=== PATIENT | female | born 2000 | race Caucasian/White ===

== ENCOUNTER 2019-10-19 02:45 | Emergency (ER) | payer BC ==
[~2019-10-19] VITALS: Ht 162.6 cm; Wt 77.1 kg
--- OUTSIDE RECORDS SUMMARY | ~2019-10-19 | XMS | Encounter Summary ---
Demographics + + + | Address | [address] | | | [place] [address] | + + + | Home Phone | | + + + | Preferred Language | Unknown | + + + | Marital Status | Single | + + + | Alevism Affiliation | NRP | + + + | Race | White | + + + | Ethnic Group | Not or | + + + Author + + + | Author | [facility] | + + + | Organization | [facility] | + + + | Address | Unknown | + + + | Phone | Unavailable | + + + Support + + +---------+ + | Name | Relationship | Address | Phone | + + +---------+ + | Regina Liu | ECON | Unknown | | + + +---------+ + Care Team Providers + +------+ + | Care Connection Worker Name | Role | Phone | + +------+ + | No Pcp Per Patient | PCP | Unavailable | + +------+ + Reason for Referral Physical Therapy (Routine) +--------+--------+ + + + + | Status | Reason | Specialty | Diagnoses / | Referred By | Referred To | | | | | Procedures | Contact | Contact | +--------+--------+ + + + + | Closed | | Physical | Diagnoses | Shante | | | | | Therapy | Erik Nunez | | | | | | khanh dhaliwal, | [facility] [address] | | | | | | right, | [address] | | | | | | subsequent | [address] | | | | | | encounter | [place], [place] | | | | | | Procedures | [address] | | | | | | PHYSICAL | Phone: | | | | | | THERAPY | [phone] | | | | | | REFERRAL | Fax: | | | | | | | [phone] | | +--------+--------+ + + + + Reason for Visit + + + | Reason | Comments | + + + | Pre-op evaluation | | + + + Encounter Details +--------+---------+ + + + | Date | Type | Department | Care Team | Description | +--------+---------+ + + + | 02/21/ | Office | Orthopaedics | Mayra Frey | Acetabular labrum | | 2018 | Visit | [facility] [place] | [address] | tear, right, | | | | for Health and | [address] [place], | subsequent encounter | | | | Healing [address] | [place] [address] | (Primary Dx) | | | | Ave [place] for | [phone] | | | | | Health and Healing, | | | | | | | | | | | | Floor [place], [place] | | | | | | [address] | | | | | | [phone] | | | +--------+---------+ + + + Social History + +-------+ +--------+------+ | Tobacco Use | Types | Packs/Day | Years | Date | | | | | Used | | + +-------+ +--------+------+ | Never Smoker | | | | | + +-------+ +--------+------+ + +---+---+---+ | Smokeless Tobacco: | | | | | Never Used | | | | + +---+---+---+ + + +---------+ + | Alcohol Use | Drinks/Week | oz/Week | Comments | + + +---------+ + | No | | | | + + +---------+ + + + + | Sex Assigned at | Date Recorded | | | | + + + | Not on file | | + + + + + + + | Job Start Date | Occupation | Industry | + + + + | Not on file | Not on file | Not on file | + + + + + + + + | Travel History | Travel Start | Travel End | + + + + + + | No recent travel history available. | + + documented as of this encounter Progress Notes Mayra Frey PA-C - 02/21/2018 11:05 AM PSTFormatting of this note might be di fferent from the original. S:Annabelle Gardner is a 17 y.o. female here for preop for right hip arthroscopic l abral surgery, cartilage surgery and femoral neck osteoplasty surgery. She reports no recen t illness/fever. She reports these conditions, allergies and medications significant to surg jazmín: Diabetes:no Cardiovascular: no Pulmonary: no Bleeding or clotting disorders: no Current Medication List Name Sig DASETTA (28) 1 MG-35 MCG TABLET Allergies No Known Allergies O: General: NAD, alert, affect appropriate, cooperative with exam Musculoskeletal: No change from previous. Surgical site is unbroken, without erythema or other sign of infection. A:/P: A PARQ session was held. This procedure has been fully reviewed with the patient, and writt en informed consent has been obtained. Additional questions with discussion were completed. -PT orders provided -Post operative prescriptions provided; pt advised to fill prior to surgery. -D/C home care instructions provided. Patient expressed understanding of the following: - Risks associated with hip arthroscopy include: Anesthesia, damage to nerve/ vessel/ tendo n, blood clot, infection, osteonecrosis, hip fracture and traction related injury such as pe nile or vaginal numbness and foot drop - No food or drink from midnight the night before surgery until after surgery is completed. - Medications the day of surgery as recommended by Anesthesia. - Discontinue all aspirin, Ibuprofen, Motrin, or other anti-inflammatory - Tylenol, Extra Strength Tylenol or Tylenol Arthritis are okay to use for pain control. - Benefits of home pain pump. Do not shower until catheter from block is removed. - Benefits of oral pain medication in addition to home pain pump - Necessity of using crutches x 2 weeks postoperatively - Continuous passive motion machine x2 weeks 6 hours per day. Arrangements have been made t o have CPM machine delivered to patient's home. - Weightbearing, if permitted, only when leg is no longer numb. - Importance of attending preop and postop physical therapy. First PT appointment should occur within 72 hours of surgery. Please call to schedule this ahead of time so that there is no delay in beginning the rehabilitation process. - Potential for ongoing physical therapy - Need for a caregiver to transport them home from surgery documented in this encounter Plan of Treatment Not on filedocumented as of this encounter Procedures + +--------+ + + + | Procedure Name | Priori | Date/Time | Associated Diagnosis | Comments | | | ty | | | | + +--------+ + + + | ORDERS OTHER | | 02/21/2018 | | Results for this | | | | 12:00 AM | | procedure are in the | | | | PST | | results section. | + +--------+ + + + documented in this encounter Results ORDERS OTHER (02/21/2018 12:00 AM PST) + + + | Narrative | Performed At | + + + | | | + + + documented in this encounter Visit Diagnoses + + | Diagnosis | + + | Acetabular labrum tear, right, subsequent encounter - Primary | + + documented in this encounter"
--- OUTSIDE RECORDS SUMMARY | ~2019-10-19 | XMS | Encounter Summary ---
Demographics + + + | Address | [address] | | | [place] [address] | + + + | Home Phone | | + + + | Preferred Language | Unknown | + + + | Marital Status | Single | + + + | Tenriism Affiliation | NRP | + + + | Race | White | + + + | Ethnic Group | Not or | + + + Author + + + | Author | [facility] | + + + | Organization | [facility] | + + + | Address | Unknown | + + + | Phone | Unavailable | + + + Support + + +---------+ + | Name | Relationship | Address | Phone | + + +---------+ + | Regina Liu | ECON | Unknown | | + + +---------+ + Care Team Providers + +------+ + | Care Requirements Analyst Name | Role | Phone | + +------+ + | Ekaterina Head | PCP | | + +------+ + Reason for Visit + + + | Reason | Comments | + + + | Follow-up visit | | + + + Encounter Details +--------+---------+ + + + | Date | Type | Department | Care Team | Description | +--------+---------+ + + + | 06/21/ | Office | Orthopaedics | Romero Strong, | Pain of right hip | | 2019 | Visit | [facility] at [facility] | [address] [facility] | joint (Primary Dx) | | | | for Health and | [address] | | | | | Healing [address] | [place], [place] | | | | | [facility] for | [address] | | | | | Health and Healing, | [phone] | | | | | [facility] | | | | | | Floor [place], [place] | | | | | | [address] | | | | | | [phone] | | | +--------+---------+ + + + [...] documented as of this encounter Progress Notes Romero Strong MD - 06/21/2018 1:30 PM PDTFormatting of this note might be different fr om the original. Post Operative Visit: S: Annabelle Gardner is a 18 y.o. female almost 15 weeks status post the below mentione d procedure. Right Diagnostic Hip arthroscopy Acetabular chondroplasty Labral repair Capsular repair She is progressing well. She is doing home exercises, she is doing bridging, planks, squats ,joggingstep ups, balance work. She is mostly pain free and notes pain still with RIOS stre tch. She has occasional popping which is improving. ROS: Review of Systems: A 10 Point review of systems was conducted. Denies fevers, chills , SOB, chest pain, leg pain, purulent or bloody drainage from incision sights, erythema, flu ctuance, or induration, surrounding the incision sight, or changes in bowel or bladder funct ion. O: Vitals: 06/21/18 1333 PainSc: 0 - Zero PainLoc: Hip (Right) Physical Exam: GA: Alert and oriented x 3, NAD, appropriate mood and affect. Gait: nl FORWARD FLEXION: 120 ER at 90 degrees: 50 IR at 90 degrees: 20 RIOS 2 Incisions healing well without surrounding erythema, warmth, or discharge. SENSATION: Intact to light touch Xray: nl postop ASSESSMENT: Annabelle is progressing well. PLAN: -f/u at 6 months postop -continue rehab per protocol. Romero Strong MD Sports Orthopaedics and Arthroscopy Splicer Operator Dept. Orthopaedic Surgery and Rehabilitation [facility] documented in this e ncounter Plan of Treatment Not on filedocumented as of this encounter Results X-RAY PELVIS 2 VIEWS (06/21/2018 1:17 PM PDT) + + | Specimen | + + | | + + + + + | Narrative | Performed At | + + + | EXAM: PELVIS 2 VIEWS HISTORY: pain. Prior right hip arthroscopy, | [facility] | | acetabular chondroplasty and labral repair. COMPARISON: 08/29/2017 | RADIOLOGY VOICE | | FINDINGS: Known postoperative changes of the right hip are | RECOGNITION 2 | | not well outlined. No osteonecrosis is identified. There is no acute | | | fracture, focal osseous destruction, or malalignment. The hips, pubic | | | symphysis, and sacroiliac joints are intact. IMPRESSION: No | | | acute osseous abnormality or significant arthropathy. I have | | | personally reviewed the images and, if necessary, edited the report. I | | | agree with the report as now presented. Final signature: Laura | | | Mert Shirley MD 06/21/2018 1:30 PM Preliminary: Errol Bueno MD | | | Dictation initiated: Errol uBeno MD 06/21/2018 1:21 PM | | + + + + + | Procedure Note | + + | Service Account, Radiant Res In Interface - 06/21/2018 1:31 PM PDT EXAM: PELVIS 2 | | VIEWS HISTORY: pain. Prior right hip arthroscopy, acetabular chondroplasty and labral | | repair. COMPARISON: 08/29/2017 FINDINGS: Known postoperative changes of the right hip are | | not well outlined. No osteonecrosis is identified. There is no acute fracture, focal | | osseous destruction, or malalignment. The hips, pubic symphysis, and sacroiliac joints | | are intact. IMPRESSION: No acute osseous abnormality or significant arthropathy. I have | | personally reviewed the images and, if necessary, edited the report. I agree with the | | report as now presented. Final signature: Laura Shirley MD 06/21/2018 1:30 PM | | Preliminary: Errol Bueno MD Dictation initiated: Errol Bueno MD 06/21/2018 1:21 PM | | | |IMPRESSION: | | | |No acute osseous abnormality or significant arthropathy. | | | |I have personally reviewed the images and, if necessary, edited the report. I agree with e report as now presented. | | | |Final signature: Laura Shirley MD 06/21/2018 1:30 PM | |Preliminary: Errol Bueno MD | |Dictation initiated: Errol Bueno MD 06/21/2018 1:21 PM | + + + +---------+ + + | Performing | Address | City/State/Zipcode | Phone Number | | Organization | | | | + +---------+ + + | [facility] | | | | | VOICE RECOGNITION 2 | | | | + +---------+ + + documented in this encounter Visit Diagnoses + + | Diagnosis | + + | Pain of right hip joint - Primary | + + documented in this encounter"
--- OUTSIDE RECORDS SUMMARY | ~2019-10-19 | XMS | Encounter Summary ---
Demographics + + + | Address | [address] | | | [place] [address] | + + + | Home Phone | | + + + | Preferred Language | Unknown | + + + | Marital Status | Single | + + + | Latter Day Affiliation | NRP | + + + | Race | White | + + + | Ethnic Group | Not or | + + + Author + + + | Author | [facility] | + + + | Organization | [facility] | + + + | Address | Unknown | + + + | Phone | Unavailable | + + + Support + + +---------+ + | Name | Relationship | Address | Phone | + + +---------+ + | Regina Liu | ECON | Unknown | | + + +---------+ + Care Team Providers + +------+ + | Care Neuro Psych Sales Specialist Name | Role | Phone | + +------+ + | Unknown | PCP | Unavailable | + +------+ + Encounter Details +--------+ + + + + | Date | Type | Department | Care Team | Description | +--------+ + + + + | 10/02/ | Abstract | Orthopaedics | Mayra Frey | | | 2018 | | [facility] at [place] | [address] | | | | | for Health and | [address] [place], | | | | | Healing [address] | [place] [address] | | | | | [facility] for | [phone] | | | | | Health and Healing, | | | | | | | | | | | | [place], [place] | | | | | | [address] | | | | | | [phone] | | | +--------+ + + + + Social History + +-------+ +--------+------+ | Tobacco Use | Types | Packs/Day | Years | Date | | | | | Used | | + +-------+ +--------+------+ | Never Assessed | | | | | + +-------+ +--------+------+ + + + | Sex Assigned at [...] + + documented as of this encounter Plan of Treatment Not on filedocumented as of this encounter Visit Diagnoses Not on filedocumented in this encounter"
--- OUTSIDE RECORDS SUMMARY | ~2019-10-19 | XMS | Encounter Summary ---
Demographics + + + | Address | [address] | | | [place] [address] | + + + | Home Phone | | + + + | Preferred Language | Unknown | + + + | Marital Status | Single | + + + | Caodaism Affiliation | NRP | + + + | Race | White | + + + | Ethnic Group | Not or | + + + Author + + + | Author | [facility] | + + + | Organization | [facility] | + + + | Address | Unknown | + + + | Phone | Unavailable | + + + Support + + +---------+ + | Name | Relationship | Address | Phone | + + +---------+ + | Regina Liu | ECON | Unknown | | + + +---------+ + Care Team Providers + +------+ + | Care Bindery Operator Name | Role | Phone | + +------+ + | Ekaterina Head | PCP | | + +------+ + Encounter Details +--------+ + + + + | Date | Type | Department | Care Team | Description | +--------+ + + + + | 03/06/ | MyChart | Orthopaedics | Romero Strong, | Surgery from | | 2018 | Encounter | Faculty at [place] | [address] | 02/27/18 Annabelle | | | | for Health and | [address] | [place] | | | | Healing [address] | [place], [place] | | | | | [facility] | [address] | | | | | Health and Healing, | [phone] | | | | | | | | | | | Floor [place], [place] | | | | | | [address] | | | | | | [phone] | | | +--------+ + + + [...]
--- OUTSIDE RECORDS SUMMARY | ~2019-10-19 | XMS | Encounter Summary ---
Demographics + + + | Address | [address] | | | [place] [address] | + + + | Home Phone | | + + + | Preferred Language | Unknown | + + + | Marital Status | Single | + + + | Mandaen Affiliation | NRP | + + + | Race | White | + + + | Ethnic Group | Not or | + + + Author + + + | Author | [facility] | + + + | Organization | [facility] | + + + | Address | Unknown | + + + | Phone | Unavailable | + + + Support + + +---------+ + | Name | Relationship | Address | Phone | + + +---------+ + | Regina Liu | ECON | Unknown | | + + +---------+ + Care Team Providers + +------+ + | Care Flavor Room Worker Name | Role | Phone | [...] Visit | Faculty at Center | [address] [facility] | joint (Primary Dx) | | | | for Health and | [address] | | | | | Healing [address] | [place], [place] | | | | | [facility] for | [address] | | | | | Health and Healing, | [phone] | | | | | [facility] | | | | | | Floor [place], [place] | | | | | | [address] | | | | | | [phone] | | | +--------+---------+ + + + [...] Romero Strong MD Sports Orthopaedics and Arthroscopy Reservoir Engineer Dept. Orthopaedic Surgery and Rehabilitation [facility] documented in this e ncounter Plan of [...] MD | | | Dictation initiated: Errol Bueno MD 06/21/2018 1:21 PM | | + [...]
--- OUTSIDE RECORDS SUMMARY | ~2019-10-19 | XMS | Encounter Summary ---
Demographics + + + | Address | [address] | | | [place] [address] | + + + | Home Phone | | + + + | Preferred Language | Unknown | + + + | Marital Status | Single | + + + | Yarsani Affiliation | NRP | + + + | Race | White | + + + | Ethnic Group | Not or | + + + Author + + + | Author | [facility] | + + + | Organization | [facility] | + + + | Address | Unknown | + + + | Phone | Unavailable | + + + Support + + +---------+ + | Name | Relationship | Address | Phone | + + +---------+ + | Regina Liu | ECON | Unknown | | + + +---------+ + Care Team Providers + +------+ + | Care Scada Technician Name | Role | Phone | + +------+ + | Ekaterina Head | PCP | | + +------+ + Reason for Visit +---------+ + | Reason | Comments | +---------+ + | Post Op | | +---------+ + PROC - Outpatient Surgery (Routine) +--------+--------+ + + + + | Status | Reason | Specialty | Diagnoses / | Referred By | Referred To | | | | | Procedures | Contact | Contact | +--------+--------+ + + + + | Closed | | Orthopedics | Diagnoses | Homa, | 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, | Romero Reinoso MD | | | | | Femoroacetab | St | [address] [facility] | | | | | susan Fatima | [address] | | | | | impingement | Hospital | [address] [place], | | | | | of right hip | [address] | [place] | | | | | Other | [address] | [address] | | | | | sprain of | [place], | Phone: | | | | | right hip, | [place] [address] | [phone] | | | | | initial | Phone: | Fax: | | | | | encounter | [phone] | [phone] | | | | | Procedures | Fax: | | | | | | REQUEST TO | [phone] | | | | | | SURGERY | | | | | | | STRIKER OFF | | | | | | | MA HIP | | | | | | | ARTHROSCOPY, | | | | | | | DX MA HIP | | | | | | | SCOPE/REMV | | | | | | | BODY,PLASTY/ | | | | | | | RESECTN MA | | | | | | | HIP ARTHRO | | | | | | | W/LABRAL | | | | | | | REPAIR MA | | | | | | | HIP ARTHRO | | | | | | | ACETABULOPLA | | | | | | | STY MA HIP | | | | | | | ARTHRO | | | | | | | W/FEMOROPLAS | | | | | | | TY | | | +--------+--------+ + + + + Encounter Details +--------+---------+ + + + | Date | Type | Department | Care Team | Description | +--------+---------+ + + + | 03/08/ | Office | Orthopaedics | Mayra Frey | Erik cassidy | | 2018 | Visit | [facility] at [place] | [address] | tear, right, | | | | for Health and | [address] [place], | subsequent encounter | | | | Healing [address] | [place] [address] | (Primary Dx) | | | | [facility] for | [phone] | | | | | Health and Healing, | | | | | | [facility] | | | | | | Floor [place], [place] | | | | | | [address] | | | | | | [phone] | | | +--------+---------+ + + + [...] + + documented as of this encounter Last Filed Vital Signs + + + + + | Vital Sign | Reading | Time Taken | Comments | + + + + + | Blood Pressure | - | - | | + + + + + | Pulse | - | - | | + + + + + | Temperature | - | - | | + + + + + | Respiratory Rate | - | - | | + + + + + | Oxygen Saturation | - | - | | + + + + + | Inhaled Oxygen | - | - | | | Concentration | | | | + + + + + | Weight | 72.6 kg (160 lb) | 03/08/2018 1:01 PM | | | | | PST | | + + + + + | Height | 162.6 cm (5' 4") | 03/08/2018 1:01 PM | | | | | PST | | + + + + + | Body Mass Index | 27.46 | 03/08/2018 1:01 PM | | | | | PST | | + + + + + documented in this encounter Progress Notes Mayra Frey PA-C - 03/08/2018 1:30 PM PSTFormatting of this note might be di fferent from the original. Post Operative Visit: S: Annabelle Gardner is a 18 y.o. female 1.5 weeks status post the below mentioned pro cedure. Right Diagnostic Hip arthroscopy Acetabular chondroplasty Labral repair Capsular repair She is progressing well. She is 50% weight-bearing with crutches. She has minimal pain an d is no longer needing any type of pain medication. She continues to take piroxicam and aspi rin as prescribed. She has been using the CPM machine for 6 hrs/day and has been to 4 sessi ons of PT at [facility] thus far. She denies any numbness or tingling. The suture f rom her lateral incision fell out on its own 2 days ago, but she denies any associated bleed ing or drainage and the skin is healing well. She is pleased with her progress thus far and has no other questions or concerns. ROS: Review of Systems: A 10 Point review of systems was conducted. Denies fevers, chills , SOB, chest pain, leg pain, purulent or bloody drainage from incision sights, erythema, flu ctuance, or induration, surrounding the incision sight, or changes in bowel or bladder funct ion. O: Filed Vitals: 03/08/2018 1:01 PM Height: 1.626 m (5' 4") Weight: 72.6 kg (160 lb) PainSc: 0 - Zero PainLoc: Hip (Right) BMI: 27.46 kg/(m^2) Physical Exam: GA: Alert and oriented x 3, NAD, appropriate mood and affect. Gait: 50% weight-bearing with crutches FORWARD FLEXION: 100 ER at 90 degrees: 30 IR at 90 degrees: 10 Incisions healing well without surrounding erythema, warmth, or discharge. SENSATION: Intact to light touch Procedure Note: Sutures were cleansed with an alcohol prep pad. The sutures are removed w ithout any complications and steri-Strips were applied. No bleeding occurred and the patie nt tolerated the procedure well. ASSESSMENT: Annabelle is progressing well PLAN: -f/u in [address] Strong. XRAYS prior: 2 view pelvis -continue rehab per protocol. -Advised to call Or proceed to ED with onset of fever, chills, erythema, purulence, or juve inage at the incision site documented in this encounter Plan of Treatment Not on filedocumented as of this encounter Visit Diagnoses + + | Diagnosis | + + | Acetabular labrum tear, right, subsequent encounter - Primary | + + documented in this encounter
--- OUTSIDE RECORDS SUMMARY | ~2019-10-19 | XMS | Encounter Summary ---
Demographics + + + | Address | [address] | | | [place] [address] | + + + | Home Phone | | + + + | Preferred Language | Unknown | + + + | Marital Status | Single | + + + | Mosque Affiliation | NRP | + + + | Race | White | + + + | Ethnic Group | Not or | + + + Author + + + | Author | [facility] | + + + | Organization | [facility] | + + + | Address | Unknown | + + + | Phone | Unavailable | + + + Support + + +---------+ + | Name | Relationship | Address | Phone | + + +---------+ + | Regina Liu | ECON | Unknown | | + + +---------+ + Care Team Providers + +------+ + | Care Hat Finisher Name | Role | Phone | + +------+ + | No Pcp Per Patient | PCP | Unavailable | + +------+ + Reason for Referral PROC - Outpatient Surgery (Routine) +--------+--------+ + + + + | Status | Reason | Specialty | Diagnoses / | Referred By | Referred To | | | | | Procedures | Contact | Contact | +--------+--------+ + + + + | Closed | | Orthopedics | Diagnoses | Homa, | Ligia, | | | | | | Ziggy Paniagua, | Romero Reinoso MD | | | | | Femoroacetab | St | [address] [facility] | | | | | susan | [facility] | | | | | impingement | [facility] | [address] [place], | | | | | of right hip | [address] | [place] | | | | | Other | [address] | [address] | | | | | sprain of | [place], | Phone: | | | | | right hip, | [place] [address] | [phone] | | | | | initial | Phone: | Fax: | | | | | encounter | [phone] | [phone] | | | | | Procedures | Fax: | | | | | | REQUEST TO | [phone] | | | | | | SURGERY | | | | | | | BENCH LATHE OPERATOR | | | | | | | [place] HIP | | | | | | | ARTHROSCOPY, | | | | | | | DX [place] HIP | | | | | | | SCOPE/REMV | | | | | | | BODY,PLASTY/ | | | | | | | RESECTN [place] | | | | | | | HIP ARTHRO | | | | | | | W/LABRAL | | | | | | | REPAIR [place] | | | | | | | HIP ARTHRO | | | | | | | ACETABULOPLA | | | | | | | STY [place] HIP | | | | | | | ARTHRO | | | | | | | W/FEMOROPLAS | | | | | | | TY | | | +--------+--------+ + + + + Reason for Visit + + + | Reason | Comments | + + + | New Patient Visit | | + + + Consultation (Routine) +--------+--------+ + + + + | Status | Reason | Specialty | Diagnoses / | Referred By | Referred To | | | | | Procedures | Contact | Contact | +--------+--------+ + + + + | Closed | | Orthopedics | | Homa, | Ligia, | | | | | | Ziggy Paniagua, | Romero Reinoso MD | | | | | | St | [address] | | | | | | [facility] | [facility] | | [facility] | [address] [place], | | | | | | Orthopedics | [place] | | | | | | [address] | [address] | | | | | | [address] | Phone: | | | | | | [place], | [phone] | | | | | | [place] [address] | Fax: | | | | | | Phone: | [phone] | | | | | | [phone] | | | | | | | Fax: | | | | | | | [phone] | | +--------+--------+ + + + + Encounter Details +--------+---------+ + + + | Date | Type | Department | Care Team | Description | +--------+---------+ + + + | 10/18/ | Office | Orthopaedics | Romero Strong, | Femoroacetabular | | 2018 | Visit | [facility] [place] | [address] | impingement of right | | | | for Health and | [address] | hip (Primary Dx) | | | | Healing [address] | [place], [place] | | | | | [facility] | [address] | | | | | Health and Healing, | [phone] | | | | | [facility] | | | | | | Floor [place], [place] | | | | | | [address] | | | | | | [phone] | | | +--------+---------+ + + + [...] + + + | Blood Pressure | 128/64 | 10/18/2017 9:25 AM | | | | | PDT | | + + + + + | Pulse | 94 | 10/18/2017 9:25 AM | | | | | PDT | | + + + + + [...] + + + + | Weight | 68 kg (150 lb) | 10/18/2017 9:25 AM | | | | | PDT | | + + + + + | Height | 162.6 cm (5' 4") | 10/18/2017 9:25 AM | | | | | PDT | | + + + + + | Body Mass Index | 25.75 | 10/18/2017 9:25 AM | | | | | PDT | | + + + + + documented in this encounter Progress Notes Romero Strong MD - 10/18/2017 9:50 AM PDTFormatting of this note might be different fr om the original. PATIENT: Annabelle Gardner [facility] MR#: [id number] : 2000 REQUESTING PROVIDER: Ziggy Luther MD [address] [address] PRIMARY CARE PROVIDER: No Pcp Per PATIENT CLINIC: [facility] Sports Medicine - Orthopedic Surgery HPI: Annabelle Gardner is a 17 y.o. female who presents for evaluation of her righ t hip symptoms which started 4 months ago. There is no history of trauma and she was working on her feet all day in retail and started to have anterior groin. She was treated by her P CP with stretches and formal PT but symptoms persisted. She then saw Dr. Luther who diagnosed a labral tear. She loves to ride horses and currently works in a vet clinic and is limited by pain. She describes her pain as constant, achy and sharp, stabbing pain localizing to the deep gr oin crease. She has tried rest, ice, stretching, massage, physical therapy, chiropractic ca re and anti-inflammatory medication for pain relief and feels that nothing is particularly e ffective. Annabelle describes pain which worsens with walking, sports and sitting and rates 7 out of 10 at its worst. This level of pain causes moderate disability. The severity of lily n is activity-related. Total duration of conservative treatment including cessation of yoga and stretching, restri ction of athletic pursuits and avoidance of symptomatic motion: 4 months. Annabelle describes stiffness and catching after prolonged sitting and requires "adjusting" th e hip prior to ambulating. She also describes difficulty getting in or out of low-seated ca r. She denies difficulty with putting on shoes and socks. Annabelle denies numbness, tingling or pain radiating into the right leg and foot . She denie s symptoms with coughing, sneezing, or valsalva. Annabelle denies snapping. This snapping does not generate pain. History reviewed. No pertinent past medical history. Past Surgical History Procedure Laterality Date Application, external fixation device 2003 Right leg for fx Social History: Annabelle reports that she has never smoked. She has never used smokeless tob acco. She reports that she does not drink alcohol or use drugs.. Her occupation is [employer]. Family Hx: I reviewed and non-contributory Current Outpatient Prescriptions Medication DASETTA (28) 1-35 mg-mcg oral tablet No current facility-administered medications for this visit. Allergy: Annabelle has No Known Allergies. REVIEW OF SYSTEMS: 10 point review of systems completed. Pertinent positives include None. PHYSICAL EXAM Vital Signs: BP 128/64 | Pulse 94 | Ht 1.626 m (5' 4") | Wt 68 kg (150 lb) | BMI 25.75 kg/( m^2) General: Patient appears comfortable in no apparent distress Gait: Trendelenburg right Posture: normal No scoliosis clinically with forward bend. Lumbar spine ROM: limited in flexion Motor Exam: Musc Ilio Hip Add Hip Abd Quad Hams TibAnt Michell EHL Left 5 5 5 5 5 5 5 5 Right 5 5 5 5 5 5 5 5 Sensation intact to light touch bilateral lower extremities. Bilateral Lower Extremity Deep tendon reflexes: symmetric, wnl. No clonus Cardiovascular: No obvious swelling or pitting edema in either lower extremity. Bilateral t highs and legs are the same temperature to palpation. Symmetric hair growth patterns on both lower extremities. Skin: No rash or skin abnormality noted in either lower extremity Leg lengths clinically equal Hip ROM: FF ER at 90 IR at 90 ABD RIOS Left 130 60 20 50 1 fists Right 110 60 30 50 3 fists Straight Leg Raise neg at 50 degrees bilaterally Impingement Test (IR at 90): positive on the affected side. Scour Sign: positive on the affected side. Stability Exam : Rollout test negative Palpable psoas snap: none Criselda exam: Right: negative Left: negative X-Ray: Standing AP pelvis and frog lateral hip: CEA 35, small crossover, nl jointspace, sma ll irregularity at the anterior capitol physis is consistent with CAM PREVIOUS STUDIES: MRI: None MRI ARTHROGRAM: Nondisplaced anterior labral tear ASSESSMENT: Annabelle is a 17 y.o. female with right hip symptoms most consistent with femoroacetabular im pingement and associated chondrolabral injury. I spent 30 minutes with Ms. Gardner and greater than 50% of this time was spent counseling her regarding this diagnosis. We discuss ed it's natural history as well as both operative and non-operative treatment options. PLAN: After discussing my thoughts and management options, we plan to proceed with arthroscopic i ntervention. Romero Strong MD Sports Orthopaedics and Arthroscopy Director Digital Communications Dept. Orthopaedic Surgery and Rehabilitation [facility] [place] documented in this e ncounter Plan of Treatment Not on filedocumented as of this encounter Visit Diagnoses + + | Diagnosis | + + | Femoroacetabular impingement of right hip - Primary Enthesopathy of hip region | + + documented in this encounter
--- OUTSIDE RECORDS SUMMARY | ~2019-10-19 | XMS | Encounter Summary ---
Demographics + + + | Address | [address] | | | [place] [address] | + + + | Home Phone | | + + + | Preferred Language | Unknown | + + + | Marital Status | Single | + + + | Pentecostalism Affiliation | NRP | + + + | Race | White | + + + | Ethnic Group | Not or | + + + Author + + + | Author | [facility] | + + + | Organization | [facility] | + + + | Address | Unknown | + + + | Phone | Unavailable | + + + Support + + +---------+ + | Name | Relationship | Address | Phone | + + +---------+ + | Regina Liu | ECON | Unknown | | + + +---------+ + Care Team Providers + +------+ + | Care House Superintendent Name | Role | Phone | + +------+ + | Ekaterina Head | PCP | | + +------+ + Reason for Visit AUTH/CERT +--------+--------+ + + + + | Status | Reason | Specialty | Diagnoses / | Referred By | Referred To | | | | | Procedures | Contact | Contact | +--------+--------+ + + + + | | | | | | | +--------+--------+ + + + + Encounter Details +--------+ + + + + | Date | Type | Department | Care Team | Description | +--------+ + + + + | 02/27/ | Anesthesia | [facility] | Monica Stephens, | | | 2018 | Event | [facility] | Andrea Painting MD,PhD | | | | | and Healing Surgery | [address] | | | | | Center Admitting | [place], [place] | | | | | Desk Located on the | [address] | | | | | 4th floor [address] | [phone] | | | | | [address] [place], | | | | | | [place] [address] | Luis Mackay MD | | | | | | [address] | | | | | | [place], | | | | | | [place] [address] | | | | | | [phone] | | | | | | | | +--------+ + + + + Anesthesia Record + + + + + | Procedure Name | Responsible | Anesthesia Start | Anesthesia Stop Time | | | Anesthesiologist | Time | | + + + + + | RIGHT DIAGNOSTIC HIP | Andrea Anderson | 02/27/18723 | 02/27/18908 | | ARTHROSCOPY, | MD Angelo,PhD | | | | ACETABULAR | | | | | CHONDROPLASTY, | | | | | FEMORAL NECK | | | | | OSTEOPLASTY, | | | | | ACETABULAR RIM | | | | | TRIMMING, AND LABRAL | | | | | REPAIR (Right Hip) | | | | + + + + + +----+---+ + + | Da | T | Event | Comment | | te | i | | | | | m | | | | | e | | | +----+---+ + + | 12 | 0 | | | | /1 | 7 | | | | 2/ | 1 | | | | 20 | 4 | | | | 18 | | | | +----+---+ + + | | 0 | Pt. Check | Prior to anesthesia start, pt. Identified, examined, chart | | | 7 | | reviewed, PARQ held, anesthetic plan made or approved by | | | 1 | | attending anesthesiologist. NPO status confirmed as appropriate | | | 4 | | for procedure Preoperative evaluation: unchanged | +----+---+ + + | | 0 | Eq Check | Anesthesia machine checked Equipment verified | | | 7 | | | | | 1 | | | | | 5 | | | +----+---+ + + | | 0 | An Start | | | | 7 | | | | | 2 | | | | | 4 | | | +----+---+ + + | | 0 | An Start | | | | 7 | Data | | | | 2 | | | | | 7 | | | +----+---+ + + | | 0 | Vitals | Monitors applied Vital signs checked Patient ready for anesthesia | | | 7 | Checked | | | | 3 | | | | | 7 | | | +----+---+ + + | | 0 | ETT | | | | 7 | | | | | 3 | | | | | 7 | | | +----+---+ + + | | 0 | Abx | | | | 7 | Administere | | | | 3 | d | | | | 9 | | | +----+---+ + + | | 0 | Ready | | | | 7 | | | | | 4 | | | | | 3 | | | +----+---+ + + | | 0 | Incision | | | | 8 | | | | | 0 | | | | | 1 | | | +----+---+ + + | | 0 | Surgery end | | | | 8 | | | | | 5 | | | | | 8 | | | +----+---+ + + | | 0 | An Extubate | Neuromuscular function Intact. Pharynx suctioned. Patient obeys | | | 9 | | commands. Adequate pulmonary mechanics. | | | 0 | | | | | 0 | | | +----+---+ + + | | 0 | an stop | | | | 9 | data | | | | 0 | | | | | 2 | | | +----+---+ + + | | 0 | PACU Rpt | | | | 9 | Given | | | | 0 | | | | | 9 | | | +----+---+ + + | | 0 | Anesthesia | | | | 9 | End | | | | 0 | | | | | 9 | | | +----+---+ + + +------+ | Meds | +------+ + + + | Name | Total | + + + | fentaNYL | 200 mcg | + + + | lidocaine 2% | 70 mg | + + + | propofol | 250 mg | + + + | rocuronium | 60 mg | + + + | ceFAZolin (ANCEF) injection 2 g | 2 g | + + + | dexamethasone | 4 mg | + + + | PHENYLEPHrine | 700 mcg | + + + | PHENYLEPHrine INF (25mg/250mL) | 1,118.04 mcg | + + + | ePHEDrine | 5 mg | + + + | ondansetron | 4 mg | + + + | ketorolac | 30 mg | + + + | glycopyrrolate | 0.6 mg | + + + | neostigmine | 4 mg | + + + | lactated Ringers IV | 750 mL | + + + + + | Name | + + | Insp Sevo | + + | Et Sevo | + + + + | No blood administrations on file. | + + +--------+ + + + | Type | Details | Placement | Removal | +--------+ + + + | Incisi | 02/27/18; Right; hip | 02/27/18 0000 by | 02/27/18 1145 by | | on | (arthroscopic portals); 02/27/18; | Ewelina Beckwith, | Sahna Díaz RN | | | 1145 | RN | | +--------+ + + + | Periph | 02/27/18; 0629; Left; Hand; 20 g; | 02/27/18 0629 by | 02/27/18 1145 by | | eral | None; No; Positive; 02/27/18; | Koffi Whitt RN | Shana Díaz RN | | IV | 1145 | | | +--------+ + + + | ETT | 02/27/18; 0749 (created via | 02/27/18 0749 by | 02/27/18 09 by | | | procedure documentation); | Ekaterina Ojeda, | Ekaterina Ojeda, | | | Endotracheal Tube; 7; Oral; | BUSINESS DIVISION CHAIR | BUSINESS DIVISION CHAIR | | | Cuffed; 02/27/18; 0900 | | | +--------+ + + + documented in this encounter Social History + +-------+ +--------+------+ | Tobacco [...] | + +--------+ + + + | TOÑITO ETT | Routin | 02/27/2018 | | Results for this | | | e | 7:48 AM | | procedure are in the | | | | PST | | results section. | + +--------+ + + + documented in this encounter Results TOÑITO ETT (02/27/2018 7:48 AM PST) + + + | Narrative | Performed At | + + + | Ekaterina Ojeda CRNA 02/27/2018 7:49 AM Procedure | | | Reason for Intubation: For surgical procedure, Location Performed: [place] | | | , Patient was preoxygenated Mask Ventilation Grade 1 - Ventilated | | | by mask Intubation Blade type: Kody , Blade size: 3, | | | Atraumatic laryngoscopy: Atraumatic Laryngoscopy, Laryngoscopic | | | view: Grade I, Number of Attempts: 1, Positive for EtCO2: Yes, | | | Breath sounds: Bilateral and equal ETT ETT Size: 7 ETT | | | secured with: adhesive tape Depth at Lip: 22 Cm Narrative | | | Attending physically present Attending: ANDREA GEE | | | Performed by EKATERINA MARCUM | | + + + documented in this encounter Visit Diagnoses Not on filedocumented in this encounter Administered Medications + +--------+ +------+------+------+ | Medication Order | MAR | Action | Dose | Rate | Site | | | Action | Date | | | | + +--------+ +------+------+------+ | ceFAZolin (ANCEF) injection 2 g | Given | 02/28/20 | 2 g | | | | 2 g, intravenous, PREPROCEDURE | | 18 7:39 | | | | | ONCE, 1 dose, Starting Wed | | AM PST | | | | | 02/27/18 at 0559, Until Wed | | | | | | | 02/27/18 at 0739 | | | | | | + +--------+ +------+------+------+ +---+---+ | | | +---+---+ + +-------+ +------+---+---+ | dexamethasone (DECADRON) | Given | 02/28/20 | 4 mg | | | | injection INTRAPROCEDURE PRN, | | 18 7:45 | | | | | Starting 02/27/18 at 0745, | | AM PST | | | | | Until Sun02/27/18 at 0903 | | | | | | + +-------+ +------+---+---+ +---+---+ | | | +---+---+ + +-------+ +------+---+---+ | ePHEDrine injection | Given | 02/28/20 | 5 mg | | | | INTRAPROCEDURE PRN, Starting Wed | | 18 8:46 | | | | | 18 at 0846, Until Wed | | AM PST | | | | | 18 at 0903 | | | | | | + +-------+ +------+---+---+ +---+---+ | | | +---+---+ + +-------+ +--------+---+---+ | fentaNYL (SUBLIMAZE) injection | Given | 02/28/20 | 50 mcg | | | | INTRAPROCEDURE PRN, Starting Wed | | 18 9:09 | | | | | 18 at 0733, Until Wed | | AM PST | | | | | 18 at 0903 | | | | | | + +-------+ +--------+---+---+ +-------+ +--------+---+---+ | Given | 02/28/20 | 50 mcg | | | | | 18 7:42 | | | | | | AM PST | | | | +-------+ +--------+---+---+ | Given | 02/28/20 | 50 mcg | | | | | 18 7:33 | | | | | | AM PST | | | | +-------+ +--------+---+---+ +---+---+ | | | +---+---+ + +-------+ +--------+---+---+ | glycopyrrolate (REBEKAH) | Given | 02/28/20 | 0.6 mg | | | | injection INTRAPROCEDURE PRN, | | 18 8:52 | | | | | Starting Sun02/27/18 at 0852, | | AM PST | | | | | Until Sun02/27/18 at 0903 | | | | | | + +-------+ +--------+---+---+ +---+---+ | | | +---+---+ + +-------+ +-------+---+---+ | ketorolac (TORADOL) injection | Given | 02/28/20 | 30 mg | | | | INTRAPROCEDURE PRN, Starting Sun | | 18 8:50 | | | | | 02/27/18 at 0850, Until Wed | | AM PST | | | | | 02/27/18 at 0903 | | | | | | + +-------+ +-------+---+---+ +---+---+ | | | +---+---+ + + + +---+---+---+ | lactated Ringers IV 10 mL/hr, | given by | 02/28/20 | | | | | intravenous, PROCEDURE | | 18 9:08 | | | | | CONTINUOUS, Starting Sun02/27/18 | anesthes | AM PST | | | | | at 0600, Until Sun02/27/18 at | iology | | | | | | 1811 | | | | | | + + + +---+---+---+ + + +---+---+---+ | given by anesthesiology | 02/28/20 | | | | | | 18 8:03 | | | | | | AM PST | | | | + + +---+---+---+ | New Bag | 02/28/20 | | | | | | 18 7:14 | | | | | | AM PST | | | | + + +---+---+---+ +---+---+ | | | +---+---+ + +-------+ +-------+---+---+ | lidocaine (XYLOCAINE MPF) 2 % | Given | 02/28/20 | 70 mg | | | | (20 mg/mL) injection | | 18 7:31 | | | | | INTRAPROCEDURE PRN, Starting Wed | | AM PST | | | | | 02/27/18 at 0731, Until Wed | | | | | | | 02/27/18 at 0903 | | | | | | + +-------+ +-------+---+---+ +---+---+ | | | +---+---+ + +-------+ +------+---+---+ | neostigmine (PROSTIGMIN) | Given | 02/28/20 | 4 mg | | | | injection intravenous, | | 18 8:52 | | | | | INTRAPROCEDURE PRN, Starting Wed | | AM PST | | | | | 02/27/18 at 0852, Until Wed | | | | | | | 18 at 0903 | | | | | | + +-------+ +------+---+---+ +---+---+ | | | +---+---+ + +-------+ +------+---+---+ | ondansetron (ZOFRAN) injection | Given | 02/28/20 | 4 mg | | | | INTRAPROCEDURE PRN, Starting Wed | | 18 8:50 | | | | | 02/27/18 at 0850, Until Wed | | AM PST | | | | | 02/27/18 at 0903 | | | | | | + +-------+ +------+---+---+ +---+---+ | | | +---+---+ + +-------+ +--------+---+---+ | PHENYLEPHrine 100 mcg/mL IV | Given | 02/28/20 | 50 mcg | | | | syringe INTRAPROCEDURE PRN, | | 18 8:43 | | | | | Starting 02/27/18 at 0750, | | AM PST | | | | | Until 02/27/18 at 0903 | | | | | | + +-------+ +--------+---+---+ +-------+ +---------+---+---+ | Given | 02/28/20 | 100 mcg | | | | | 18 8:19 | | | | | | AM PST | | | | +-------+ +---------+---+---+ | Given | 02/28/20 | 50 mcg | | | | | 18 8:14 | | | | | | AM PST | | | | +-------+ +---------+---+---+ +---+---+ | | | +---+---+ + + + + +--------+---+ | PHENYLEPHrine 25 mg/250 mL (0.1 | Rate/Dos | 02/28/20 | 0.4 | 17.42 | | | mg/mL) IV infusion (ADC) | e Change | 18 8:37 | mcg/kg/m | mL/hr | | | intravenous, INTRAPROCEDURE | | AM PST | in | | | | CONTINUOUS PRN, Starting Wed | | | | | | | 02/27/18 at 0824, Until Wed | | | | | | | 02/27/18 at 0903 | | | | | | + + + + +--------+---+ +---------+ + +-------+---+ | New Bag | 02/28/20 | 0.2 | 8.71 | | | | 18 8:24 | mcg/kg/m | mL/hr | | | | AM PST | in | | | +---------+ + +-------+---+ +---+---+ | | | +---+---+ + +-------+ +-------+---+---+ | propofol (DIPRIVAN) injection | Given | 02/28/20 | 50 mg | | | | INTRAPROCEDURE PRN, Starting Wed | | 18 7:34 | | | | | 02/27/18 at 0732, Until Wed | | AM PST | | | | | 02/27/18 at 0903 | | | | | | + +-------+ +-------+---+---+ +-------+ +--------+---+---+ | Given | 02/28/20 | 200 mg | | | | | 18 7:32 | | | | | | AM PST | | | | +-------+ +--------+---+---+ +---+---+ | | | +---+---+ + +-------+ +-------+---+---+ | rocuronium (ZEMURON) injection | Given | 02/28/20 | 10 mg | | | | INTRAPROCEDURE PRN, Starting Wed | | 18 8:04 | | | | | 02/27/18 at 0733, Until Wed | | AM PST | | | | | 02/27/18 at 0903 | | | | | | + +-------+ +-------+---+---+ +-------+ +-------+---+---+ | Given | 02/28/20 | 50 mg | | | | | 18 7:33 | | | | | | AM PST | | | | +-------+ +-------+---+---+ +---+---+ | | | +---+---+ documented in this encounter"
--- OUTSIDE RECORDS SUMMARY | ~2019-10-19 | XMS | Encounter Summary ---
Demographics + + + | Address | [address] | | | [place] [address] | + + + | Home Phone | | + + + | Preferred Language | Unknown | + + + | Marital Status | Single | + + + | Baptist Affiliation | NRP | + + + [...] Team Providers + +------+ + | Care E Commerce Solution Architect Name | Role | Phone | + +------+ + | No Pcp Per Patient | PCP | Unavailable | + +------+ + Reason for Visit + + + | Reason | Comments | + + + | Hip joint pain | | + + + Physical Therapy (Routine) +--------+--------+ + + + + | Status | Reason | Specialty | Diagnoses / | Referred By | Referred To | | | | | Procedures | Contact | Contact | +--------+--------+ + + + + | Closed | | Physical | Diagnoses | Ligia, | [facility] | | | | Therapy | Other | Romero Reinoso MD | [address] | | | | | specified | [address] | [facility] | | | | | joint | [address] | for Health | | | | | disorders, | [address] | and Healing, | | | | | right hip | [place], [place] | [address], | | | | | Other sprain | [address] | 1st Floor | | | | | of right | Phone: | [place], [place] | | | | | hip, initial | [phone] | [address] | | | | | encounter | Fax: | Phone: | | | | | | [phone] | [phone] | | | | | | | Fax: | | | | | | | [phone] | +--------+--------+ + + + + Encounter Details +--------+---------+ + + + | Date | Type | Department | Care Team | Description | +--------+---------+ + + + | 02/21/ | Office | [facility] | Levy, | Pain of right hip | | 2018 | Visit | Therapy Services at | ONOFRE Baker [address] | joint (Primary Dx) | | | | [facility] | [address] [facility], | | | | | [address] | [place] [address] | | | | | [facility] | [phone] | | | | | and Healing, | | | | | | Building , | | | | | | Floor [place], [place] | | | | | | [address] | | | | | | [phone] | | | +--------+---------+ + + + [...] documented as of this encounter Progress Notes Santos Lewis, DPT - 02/21/2018 1:15 PM PST Insurance: Payor: [employer] / Plan: XPlace / Product Type: PPO / Non-Medicare [facility] PHYSICAL THERAPY EVALUATION No past medical history on file. Past Surgical History Procedure Laterality Date Application, external fixation device 2003 Current Outpatient Prescriptions: aspirin 325 mg oral tablet, Take 1 tablet by mouth once d aily., Disp: 14 tablet, Rfl: 0 DASETTA (28) 1-35 mg-mcg oral tablet, , Disp: , Rfl: 1 omeprazole 20 mg oral capsule,delayed release(DR/EC), Take 2 capsules by mouth once daily., Disp: 60 capsule, Rfl: 1 oxyCODONE (immediate release) 5 mg oral tablet, Take 1-2 tablets by mouth every four hours as needed (for pain.)., Disp: 30 tablet, Rfl: 0 piroxicam 20 mg oral capsule, Take 1 capsule by mouth once daily., Disp: 30 capsule, Rfl: 0 senna-docusate (SENNA WITH DOCUSATE SODIUM) 8.6-50 mg oral tablet, Take 1 tablet by mouth t wo times daily., Disp: 60 tablet, Rfl: 1 Previous physical therapy treatment or alternative treatments for this condition includes: physical therapy. Results of previous treatment: Not effective. Concurrent medical treatment: Upcoming surgery. SUBJECTIVE: 02/21/2018 History of Presenting Problems: Annabelle is a 17 y.o. person who is here pre op right hip art hroscopic labral surgery, cartilage surgery and femoral neck osteoplasty surgery. Has had h ip pain for 8-10 months with no specific injury. 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 Ride horses normal 2. 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 Abd: strong TREATMENT TODAY: Education of post-op objectives and phases of rehab Instruction of post-op precautions: no repetitive active hip flexion, 50% WBing with crutch es Reviewed and completed the following post-op ex's: Ankle Pumps for swelling control Quad sets for muscle re-education Gluteal sets for muscle re-education Passive long axis hip IR for ROM Modified dante stretch of edge of bed for ROM Passive hip circumduction clock and counterclockwise hip/knee straight Passive hip circumduction clock and counterclockwise hip/knee flexed to 60 deg Prone Rectus femoris stretch Prone Passive hip IR for ROM Importance of "tummy time" 2 hours/day Education of CPM to be used 6 hours/day x 2week Crutch fitting and training education provided for 50% WBing ASSESSMENT: Annabelle Gardner is pre-op for right labral repair. Currently patient is limited with standing, community ambulation, horse back riding due to pain. she is receptive to pre -op education and precautions. she is ready for surgery. GOALS, discussed with patient, due in 1 week: Short-term goals: Patient can state she post-op precautions. Patient can properly demonstrate 3 point gait pattern with crutches, WBAT. Patient and caregiver demonstrate understanding of doss post-op exercises. PLAN: Read op-report Review precautions PROM per guidelines Review doss post-op exercises for HEP Re-eval as appropriate See topics above to identify problem areas and goals Personal factors/Comorbidities: Musculoskeletal Communication: No noted deficits, Psychos ocial: Physically demanding profession/recreation, High 3+ Body structures & functions, Activity limitations, participation restrictions: Musculoskele be , ROM, Balance and Gait/Locomotion Work/school, Family home life and Recreational sport High - 4 or more elements Stability of condition: Pre-op status with uncertain recovery course Moderate - Evolving Clinical decision making: Pre-op status with uncertain recovery course Moderate - Moderate complexity Complexity: Moderate - 88974 The patient requires services that can be safely and effectively performed only by a qualif ied therapist to address the aforementioned and highlighted problems and goals. Goals discussed and agreed upon with patient and/or family. Individual cultural and social needs addressed. Rehab Potential: Good, if Annabelle carries through with home exercise program. This note is to serve as the discharge summary if the patient fails to attend further Physi conner Therapy appointments or contact the therapist regarding any change in their status. [facility] 1ST FLOOR Scheduled Appointment time: 1:15 PM Treatment began: 1255 Treatment ended: 135 Patient was seen for a total of 40 minutes of treatment time. 40 minutes was in direct cont act care as described above and on completed flow sheets. Treatment Interventions duration in minutes: Procedure:Physical Therapy Evaluation and Ther apeutic Exercise 10 min PLAN OF CARE (Established 02/21/2018 to be updated every 60 days): Treatment Plan Summary: re-eval post op Service period from: 02/21/2018 to - Start of care: 02/21/2018 Referral information Authorizing Provider: Ze Strong/Referral Date: 02/21/2018 Primary/Referral Diagnosis: M25.551 Pain of right hip joint Next progress report 04/22/2018 Insurance: Payor: XPlace / Plan: XPlace / Product Type: PPO / G-code:- code not needed. Number visits authorized: 1 Number visits used: 1 Outcome Measure 02/21/2018 Lower Extremity Functional Scale Score: 66 Percent of Functional Level: 82.5 % Percent of Disability/Impairment (MCID decrease of 11%): 17.5 % . docuramo in thi s encounter Plan of Treatment Not on filedocumented as of this encounter Procedures + +--------+ + + + | Procedure Name | Priori | Date/Time | Associated Diagnosis | Comments | | | ty | | | | + +--------+ + + + | ID THERAPEUTIC | Routin | 02/21/2018 | Pain of right hip | | | EXERCISES | e | 1:44 PM | joint | | | | | PST | | | + +--------+ + + + documented in this encounter Visit Diagnoses + + | Diagnosis | + + | Pain of right hip joint - Primary | + + documented in this encounter
--- OUTSIDE RECORDS SUMMARY | ~2019-10-19 | XMS | Encounter Summary ---
Demographics + + + | Address | [address] | | | [place] [address] | + + + | Home Phone [...] Team Providers + +------+ + | Care Jewish Thought Professor Name | Role | Phone | + +------+ + | Ekaterina Head | PCP | | + +------+ + Encounter Details +--------+ + + + + | Date | Type | Department | Care Team | Description | +--------+ + + + + | 03/27/ | Hospital | Radiology/Imaging | Romero Strong S, | | | 2020 | Encounter | Lab at [facility] [address] | [address] | | | | | [facility] for | [facility] | | | | | Health and [facility], | [place], [place] | | | | | | [address] | | | | | Floor [place], [place] | [phone] | | | | | [address] | | | | | | [phone] | | | +--------+ + + + [...] + + documented as of this encounter Medications at Time of Discharge + +-----+ +---------+ + + | Medication | Sig | Dispensed | Refills | Start | End Date | | | | | | Date | | + +-----+ +---------+ + + | DASETTA () | | | 1 | 10/12/19 | | | 1-35 mg-mcg oral | | | | 18 | | | tablet | | | | | | + +-----+ +---------+ + + documented as of this encounter Plan of Treatment Not on filedocumented as of this encounter Procedures + +--------+ + + + | Procedure Name | Priori | Date/Time | Associated Diagnosis | Comments | | | ty | | | | + +--------+ + + + | X-RAY PELVIS 2 VIEWS | Routin | 03/27/2019 | Pain of right hip | Results for this | | | e | 8:08 AM | joint | procedure are in the | | | | PST | | results section. | + +--------+ + + + documented in this encounter Results X-RAY PELVIS 2 VIEWS (03/27/2019 8:08 AM PST) + + | Specimen | + + | | + + + + + | Narrative | Performed At | + + + | EXAM: PELVIS 2 VIEWS HISTORY: hip pain COMPARISON: June 21, | [facility] | | 2019 FINDINGS: Treatment related findings at the right hip are | RADIOLOGY VOICE | | suboptimally profiled, however there is no osteonecrosis or other | RECOGNITION 2 | | abnormality. The hips are maintained. Sacroiliac joints and symphysis | | | pubis are aligned. IMPRESSION: Uncomplicated-appearing right | | | hip treatment related changes. No significant osteoarthrosis. I | | | have personally reviewed the images and, if necessary, edited the | | | report. I agree with the report as now presented. Final | | | signature: Bolivar Delgadillo MD 03/27/2019 8:23 AM Preliminary: Bolivar Delgadillo MD Dictation initiated: Bolivar Delgadillo MD 03/27/2019 | | | 8:22 AM | | + + + + + | Procedure Note | + + | Service Account, Radiant Res In Interface - 03/27/2019 8:24 AM PST EXAM: PELVIS 2 | | VIEWS HISTORY: hip pain COMPARISON: June 21, 2018 FINDINGS: Treatment related findings | | at the right hip are suboptimally profiled, however there is no osteonecrosis or other | | abnormality. The hips are maintained. Sacroiliac joints and symphysis pubis are aligned. | | IMPRESSION: Uncomplicated-appearing right hip treatment related changes. No significant | | osteoarthrosis. I have personally reviewed the images and, if necessary, edited the | | report. I agree with the report as now presented. Final signature: Bolivar Delgadillo MD | | 03/27/2019 8:23 AM Preliminary: Bolivar Delgadillo MD Dictation initiated: Bolivar Delgadillo MD | | 03/27/2019 8:22 AM | | | |IMPRESSION: | | | |Uncomplicated-appearing right hip treatment related changes. No significant osteoarthrosis. | | | |I have personally reviewed the images and, if necessary, edited the report. I agree with th e report as now presented. | | | |Final signature: Bolivar Delgadillo MD 03/27/2019 8:23 AM | |Preliminary: Bolivar Delgadillo MD | |Dictation initiated: Bolivar Delgadillo MD 03/27/2019 8:22 AM | + + + +---------+ + + | Performing | Address | City/State/Zipcode | Phone Number | | Organization | | | | + +---------+ + + | [facility] | | | | | VOICE RECOGNITION 2 | | | | + +---------+ + + documented in this encounter Visit Diagnoses + + | Diagnosis | + + | Pain of right hip joint | + + documented in this encounter"
--- OUTSIDE RECORDS SUMMARY | ~2019-10-19 | XMS | Encounter Summary ---
Demographics + + + | Address | [address] | | | [place] [address] | + + + | Home Phone | | + + + | Preferred Language | Unknown | + + + | Marital Status | Single | + + + | Mormon Affiliation | NRP | + + + [...] Team Providers + +------+ + | Care Bumboater Name | Role | Phone | + +------+ + | Unknown | PCP | Unavailable | + +------+ + Encounter Details +--------+ + + + + | Date | Type | Department | Care Team | Description | +--------+ + + + + | 10/02/ | Abstract | Orthopaedics | Mayra Fery | | | 2018 | | [facility] [place] | [facility] [place] [address] [address] | | | | | for Health and | [address] [place], | | | | | Healing [address] | [place] [address] | | | | | [facility] for | [phone] | | | | | Health and Healing, | | | | | | | | | | | | [place], [place] | | | | | | [address] | | | | | | [phone] | | | +--------+ + + + [...]
--- OUTSIDE RECORDS SUMMARY | ~2019-10-19 | XMS | Encounter Summary ---
Demographics + + + | Address | [address] | | | [place] [address] | + + + | Home Phone | | + + + | Preferred Language | Unknown | + + + | Marital Status | Single | + + + | Sikh Affiliation | NRP | + + + | Race | White | + + + | Ethnic Group | Not or | + + + Author + + + | Author | [facility] | + + + | Organization | [facility] | + + + | Address | Unknown | + + + | Phone | Unavailable | + + + Support + + +---------+ + | Name | Relationship | Address | Phone | + + +---------+ + | Regina Liu | ECON | Unknown | | + + +---------+ + Care Team Providers + +------+ + | Care Supervisor Mail Carriers Name | Role | Phone | + +------+ + | Ekaterina Head | PCP | | + +------+ + Reason for Visit + + + | Reason | Comments | + + + | Follow-up visit | Right hip | + + + Encounter Details +--------+---------+ + + + | Date | Type | Department | Care Team | Description | +--------+---------+ + + + | 03/27/ | Office | Orthopaedics | Romero Strong, | Pain of right hip | | 2019 | Visit | [facility] at [facility] | [address] | joint (Primary Dx) | | | | for Health and | [address] | | | | | Healing [address] | [place], [place] | | | | | [facility] for | [address] | | | | | Health and Healing, | [phone] | | | | | [facility] | | | | | | Floor [place], [place] | | | | | | [address] | | | | | | [phone] | | | +--------+---------+ + + + [...] Weight | 72.6 kg (160 lb) | 03/27/2019 8:12 AM | | | | | PST | | + + + + + | Height | 162.6 cm (5' 4") | 03/27/2019 8:12 AM | | | | | PST | | + + + + + | Body Mass Index | 27.46 | 03/27/2019 8:12 AM | | | | | PST | | + + + + + documented in this encounter Progress Notes Romero Strong MD - 03/27/2019 8:30 AM PSTFormatting of this note might be different fr om the original. Post Operative Visit: S: Annabelle Gardner is a 18 y.o. female almost one year status post the below mentione d procedure. Right Diagnostic Hip arthroscopy Acetabular chondroplasty Labral repair Capsular repair She is progressing well. She is back to crossfit and horseback riding. The only symptom she notes is stiffness and achy pain after prolonged sitting like a flight. She feels that this is manageable. She injured her left knee when she jumped from a horse and felt a jarring to the knee. She had subsequent posterior knee swelling and ever since she has lateral knee pain. ROS: Review of Systems: A 10 Point review of systems was conducted. Denies fevers, chills , SOB, chest pain, leg pain, purulent or bloody drainage from incision sights, erythema, flu ctuance, or induration, surrounding the incision sight, or changes in bowel or bladder funct ion. O: Vitals: 03/27/19 0812 Weight: 72.6 kg (160 lb) Height: 1.626 m (5' 4") PainSc: 0 - Zero PainLoc: Hip (Right) Physical Exam: GA: Alert and oriented x 3, NAD, appropriate mood and affect. Gait: nl FORWARD FLEXION: 120 ER at 90 degrees: 50 IR at 90 degrees: 20 RIOS 2 Incisions healing well without surrounding erythema, warmth, or discharge. SENSATION: Intact to light touch Left knee: neg ligamentous exam. Pos lateral jointline tenderness. Xray: nl postop ASSESSMENT: Annabelle is progressing well. PLAN: -f/u as needed. -F/u if knee pain does not resolve -continue HEP per protocol. Romero Strong MD Sports Orthopaedics and Arthroscopy Reference Librarian Dept. Orthopaedic Surgery and Rehabilitation [facility] documented in this e ncounter Plan of Treatment Not on filedocumented as of this encounter Results X-RAY PELVIS 2 VIEWS (03/27/2019 8:08 AM PST) + + | Specimen | + + | | + + + + + | Narrative | Performed At | + + + | EXAM: PELVIS 2 VIEWS HISTORY: hip pain COMPARISON: June 21, | [facility] | | 2018 FINDINGS: Treatment related findings at the right [...] Delgadillo MD 03/27/2019 8:23 AM Preliminary: Bolivar Bailey | | | MD Elie Dictation initiated: Bolivar Delgadillo MD 03/27/2019 | [...]
--- OUTSIDE RECORDS SUMMARY | ~2019-10-19 | XMS | Encounter Summary ---
Demographics + + + | Address | [address] | | | [place] [address] | + + + | Home Phone | | + + + | Preferred Language | Unknown | + + + | Marital Status | Single | + + + | Oriental Orthodox Affiliation | NRP | + + + [...] Team Providers + +------+ + | Care Home Maker Name | Role | Phone | + +------+ + | Ekaterina Head | PCP | | + +------+ + Encounter Details +--------+ + + + + | Date | Type | Department | Care Team | Description | +--------+ + + + + | 02/27/ | Procedure | [facility] | | | | 2018 | Pass | [place] [facility] | | | | | | and Healing Surgery | | | | | | Center Admitting | | | | | | Desk Located on the | | | | | | 4th floor [address] | | | | | | [address] [place], | | | | | | [place] [address] | | | +--------+ + + + [...]
--- OUTSIDE RECORDS SUMMARY | ~2019-10-19 | XMS | Encounter Summary ---
Demographics + + + | Address | [address] | | | [place] [address] | + + + | Home Phone | | + + + | Preferred Language | Unknown | + + + | Marital Status | Single | + + + | Voodoo Affiliation | NRP | + + + | Race | White | + + + | Ethnic Group | Not or | + + + Author + + + | Author | [facility] | + + + | Organization | [facility] | + + + | Address | Unknown | + + + | Phone | Unavailable | + + + Support + + +---------+ + | Name | Relationship | Address | Phone | + + +---------+ + | Regina Liu | ECON | Unknown | | + + +---------+ + Care Team Providers + +------+ + | Care Director Of Catering Sales Name | Role | Phone | + [...] | | Femoroacetab | St | [address] [facility] | | | | | susan Fatima | [address] | | | | | impingement | Hospital | [address] [place], | | | | | of right hip | [address] | [place] | | | | | Other | [address] | [address] | | | | | sprain of | [place], | Phone: | | | | | right hip, | [place] [address] | [phone] | | | | | initial | Phone: | Fax: | | | | | encounter | [phone] | [phone] | | | | | Procedures | Fax: | | | | | | REQUEST TO | [phone] | | | | | | SURGERY | | | | | | | HARDBOARD PANEL PRINTER | | | | | | | AK HIP | | | | | | | ARTHROSCOPY, | | | | | | | DX AK HIP | | | | | | | SCOPE/REMV | | | | | | | BODY,PLASTY/ | | | | | | | RESECTN AK | | | | | | | HIP ARTHRO | | | | | | | W/LABRAL | | | | | | | REPAIR AK | | | | | | | HIP ARTHRO | | | | | | | ACETABULOPLA | | | | | | | STY AK HIP | | | | | | [...] | 2018 | Visit | [facility] at [place] | [facility] [address] | tear, right, | | | | for Health and | [address] [place], | subsequent encounter | | | | Healing [address] | [place] [address] | (Primary Dx) | | | | [facility] for | [phone] | | | | | Health and Healing, | | | | | | [facility] | | | | | | Floor [place], [place] | | | | | | [address] | | | | | | [phone] | | | +--------+---------+ + + + [...] 4 sessi ons of PT at [facility] thus far. She denies any [...]
--- OUTSIDE RECORDS SUMMARY | ~2019-10-19 | XMS | Encounter Summary ---
Demographics + + + | Address | [address] | | | [place] [address] | + + + | Home Phone [...] Author + + + | Author | [facility] | + + + | Organization | [facility] | + + + | Address | Unknown | + + + | Phone | Unavailable | + + + Support + + +---------+ + | Name | Relationship | Address | Phone | + + +---------+ + | Regina Liu | ECON | Unknown | | + + +---------+ + Care Team Providers + +------+ + | Care Infection Control Coordinator Name | Role | Phone | + [...] | | | 2018 | Event | [facility] | Andrea Painting MD,PhD | | | | | and Healing Surgery | [address] | | | | | Center Admitting | [place], [place] | | | | | Desk Located on the | [address] | | | | | 4th floor [address] | [phone] | | | | | [address] [place], | | | | | | [place] [address] | Luis Mackay MD | | | | | | [address] | | | | | | [address] [place], | | | | | | [place] [address] | | | | | | [phone] | | | | | | | [...] (arthroscopic portals); 02/27/18; | Ewelina Beckwith, | Shana Díaz RN | | | [address] | [...] | | Endotracheal Tube; 7; Oral; | BODY MAKER MACHINE SETTER | BODY MAKER MACHINE SETTER | | | Cuffed; 02/27/18; 0900 | [...]
--- OUTSIDE RECORDS SUMMARY | ~2019-10-19 | XMS | Clinical Summary ---
Demographics + + + | Address | [address] | | | [place] [address] | + + + | Home Phone | | + + + | Preferred Language | Unknown | + + + | Marital Status | Single | + + + | Lutheran Affiliation | NRP | + + + | Race | White | + + + | Ethnic Group | Not or | + + + Author + + + | Author | [facility] | + + + | Organization | [facility] | + + + | Address | Unknown | + + + | Phone | Unavailable | + + + Support + + +---------+ + | Name | Relationship | Address | Phone | + + +---------+ + | Regina Liu | ECON | Unknown | | + + +---------+ + Care Team Providers + +------+ + | Care Personnel Generalist Manager Name | Role | Phone | + +------+ + | Ekaterina Head | PCP | | + +------+ + Source Comments YANI is fully live on both [facility] and [facility]Patient[facility] Allergies No Known Allergies Medications + +-----+ +---------+------+------+-------+ | Medication | Sig | Dispensed | Refills | Star | End | Statu | | | | | | t | Date | s | | | | | | Date | | | + +-----+ +---------+------+------+-------+ | DASETTA (28) | | | 1 | 07/ | | Activ | | 1-35 mg-mcg oral | | | | 09/05 | | e | | tablet | | | | 18 | | | + +-----+ +---------+------+------+-------+ Active Problems Not on file Social History + +-------+ +--------+------+ | Tobacco [...] recent travel history available. | + + Last Filed Vital Signs + + + + + | Vital Sign | Reading | Time Taken | Comments | + + + + + | Blood Pressure | 130/54 | 02/27/2018 11:30 AM | | | | | PST | | + + + + + | Pulse | 104 | 02/27/2018 11:30 AM | | | | | PST | | + + + + + | Temperature | 36.8 C (98.2 F) | 02/27/2018 11:30 AM | | | | | PST | | + + + + + | Respiratory Rate | 16 | 02/27/2018 11:30 AM | | | | | PST | | + + + + + | Oxygen Saturation | 98% | 02/27/2018 11:30 AM | | | | | PST [...] | | + + + + + Plan of Treatment + + + + + | Health Maintenance | Due Date | Last Done | Comments | + + + + + | Influenza (Flu) | | 04/05/2010, 02/15/2009, | | | vaccination (#1) | 9 | 02/15/2009, Additional history | | | | | exists | | + + + + + | Pneumococcal | Aged Out | | No longer eligible | | vaccination | | | based on patient's | | | | | age to complete this | | | | | topic | + + + + + Implants + +------+--------+ +--------+--------+--------+ | Implanted | Type | Area | Manufacture | Device | Shelf | Model | | | | | r | | Expira | / | | | | | | Identi | tion | Serial | | | | | | fier | Date | / Lot | + +------+--------+ +--------+--------+--------+ | [place] Suture 2.3mm 2 | | Right: | HANNAH & | | 11/06/ | [id number] | | Osteoraptor Ultrabraid | | Hip | NEPHEW | | 2022 | 91 / | | Cobraided White - | | | | | | / | | [id number]: Qty: 3 on | | | | | | 92 | | 02/27/2018 by Romero Strong | | | | | | | | MD [place] at [facility] | | | | | | | | LOC | | | | | | | + +------+--------+ +--------+--------+--------+ Results Not on filefrom Last 3 Months Insurance + +--------+ +--------+ + +------+ | Payer | Benefi | Subscriber | Effect | Phone | Address | Type | | | t Plan | ID | ana | | | | | | / | | Dates | | | | | | Group | | | | | | + +--------+ +--------+ + +------+ | PREMERA BLUE CROSS | PREMER | xxxxxxxxxxx | 03/19/19 | [phone] | [address] | PPO | | | A OF | x | 08-Pre | 1 | [id number] | | | | [place] | | sent | | [place], | | | | [place] | | | | [place] [address] | | + +--------+ +--------+ + +------+ | BLUE CROSS OTHER | BLUE | [id number] | 03/19/19 | | | PPO | | STATES | CROSS | x | 19-Pre | | | | | | [place] | | sent | | | | | | [place] | | | | | | + +--------+ +--------+ + +------+ + +--------+ +--------+ + + | Guarantor Name | Accoun | Relation to | Date | Phone | Billing Address | | | t Type | Patient | of | | | | | | | | | | + +--------+ +--------+ + + | Annabelle Gardner | Person | Self | [birth year] | [address] | | Angélica | aline/Ed | | 1999 | [phone] | [place] | | | rafi | | | 1 (Home) | [address] | + +--------+ +--------+ + +
--- OUTSIDE RECORDS SUMMARY | ~2019-10-19 | XMS | Encounter Summary ---
Demographics + + + | Address | [address] | | | [place] [address] | + + + | Home Phone | | + + + | Preferred Language | Unknown | + + + | Marital Status | Single | + + + | Jew Affiliation | NRP | + + + | Race | White | + + + | Ethnic Group | Not or | + + + Author + + + | Author | [facility] | + + + | Organization | [facility] | + + + | Address | Unknown | + + + | Phone | Unavailable | + + + Support + + +---------+ + | Name | Relationship | Address | Phone | + + +---------+ + | Regina Liu | ECON | Unknown | | + + +---------+ + Care Team Providers + +------+ + | Care Roaster Operator Name | Role | Phone | [...] | 2018 | Encounter | [facility] | [address] | 02/27/18 Annabelle | | | | for Health and | [address] | [place] | | | | Healing [address] | [place], [place] | | | | | [facility] | [address] | | | | | Health and Healing, | [phone] | | | | | | | | | | | Floor [place], [place] | | | | | | [address] | | | | | | [phone] | | | +--------+ + + + [...]
--- OUTSIDE RECORDS SUMMARY | ~2019-10-19 | XMS | Encounter Summary ---
Demographics + + + | Address | [address] | | | [place] [address] | + + + | Home Phone | | + + + | Preferred Language | Unknown | + + + | Marital Status | Single | + + + | Adventism Affiliation | NRP | + + + | Race | White | + + + | Ethnic Group | Not or | + + + Author + + + | Author | [facility] | + + + | Organization | [facility] | + + + | Address | Unknown | + + + | Phone | Unavailable | + + + Support + + +---------+ + | Name | Relationship | Address | Phone | + + +---------+ + | Regina Liu | ECON | Unknown | | + + +---------+ + Care Team Providers + +------+ + | Care Barge Captain Name | Role | Phone | + [...] [address] | | | | | [facility] for | [facility] | | | | | Health and [facility], | [place], [place] | | | | | | [address] | | | | | Floor [place], [place] | [phone] | | | | | [address] | | | | | | [phone] | | | +--------+ + + + [...] | | + +---------+ + + | [facility] | | | | | VOICE RECOGNITION 2 | | | | + +---------+ + + documented in this encounter Visit Diagnoses + + | Diagnosis | + + | Pain of right hip joint | + + documented in this encounter"
--- OUTSIDE RECORDS SUMMARY | ~2019-10-19 | XMS | Encounter Summary ---
Demographics + + + | Address | [address] | | | [place] [address] | + + + | Home Phone | | + + + | Preferred Language | Unknown | + + + | Marital Status | Single | + + + | Jewish Affiliation | NRP | + + + [...] Team Providers + +------+ + | Care Maint Mechanic Name | Role | Phone | + +------+ + | Ekaterina Head | PCP | | + +------+ + Encounter Details +--------+ + + + + | Date | Type | Department | Care Team | Description | +--------+ + + + + | 10/04/ | Documentati | Orthopaedics | Romero Strong, | | | 2018 | on | [facility] | [address] | | | | | for Health and | [address] | | | | | Healing [address] | [place], [place] | | | | | [facility] for | [address] | | | | | Health and Healing, | [phone] | | | | | [facility] | | | | | | Floor [place], [place] | | | | | | [address] | | | | | | [phone] | | | +--------+ + + + [...]
--- OUTSIDE RECORDS SUMMARY | ~2019-10-19 | XMS | Encounter Summary ---
Demographics + + + | Address | [address] | | | [place] [address] | + + + | Home Phone | | + + + | Preferred Language | Unknown | + + + | Marital Status | Single | + + + | Religion Affiliation | NRP | + + + | Race | White | + + + | Ethnic Group | Not or | + + + Author + + + | Author | [facility] | + + + | Organization | [facility] | + + + | Address | Unknown | + + + | Phone | Unavailable | + + + Support + + +---------+ + | Name | Relationship | Address | Phone | + + +---------+ + | Regina Liu | ECON | Unknown | | + + +---------+ + Care Team Providers + +------+ + | Care Seam Closer Name | Role | Phone | + [...] | | | Femoroacetab | St | [address] [facility] | | | | | susan | [place] | [facility] | | | | | impingement | [facility] | [address] [place], | | | | | of right hip | [address] | [place] | | | | | Other | [address] | [address] | | | | | sprain of | [place], | Phone: | | | | | right hip, | [place] [address] | [phone] | | | | | initial | Phone: | Fax: | | | | | encounter | [phone] | [phone] | | | | | Procedures | Fax: | | | | | | REQUEST TO | [phone] | | | | | | SURGERY | | | | | | | NET LEAD DEVELOPER | | | | | | | NE HIP | | | | | | | ARTHROSCOPY, | | | | | | | DX NE HIP | | | | | | | SCOPE/REMV | | | | | | | BODY,PLASTY/ | | | | | | | RESECTN NE | | | | | | | HIP ARTHRO | | | | | | | W/LABRAL | | | | | | | REPAIR NE | | | | | | | HIP ARTHRO | | | | | | | ACETABULOPLA | | | | | | | STY NE HIP | | | | | | [...] | | | | Hospital | Rd [place], | | | | | | Orthopedics | [place] | | | | | | [address] | [address] | | | | | | [address] | Phone: | | | | | | [place], | [phone] | | | | | | [place] [address] | Fax: | | | | | | Phone: | [phone] | | | | | | [phone] | | | | | | | Fax: | | | | | | | [phone] | | +--------+--------+ + + + + Encounter Details +--------+---------+ + + + | Date | Type | Department | Care Team | Description | +--------+---------+ + + + | 10/18/ | Office | Orthopaedics | Romero Strong, | Femoroacetabular | | 2018 | Visit | [facility] at [facility] | [address] | impingement of right | | | | for Health and | [address] | hip (Primary Dx) | | | | Healing [address] | [place], [place] | | | | | [facility] for | [address] | | | | | Health and Healing, | [phone] | | | | | [facility] | | | | | | Floor [place], [place] | | | | | | [address] | | | | | | [phone] | | | +--------+---------+ + + + [...] fr om the original. PATIENT: Annabelle Gardner [facility] MR#: [id number] : 2000 REQUESTING PROVIDER: Ziggy Luther MD [address] [address] PRIMARY CARE PROVIDER: No Pcp Per PATIENT CLINIC: [facility] Sports Medicine - Orthopedic Surgery HPI: Annabelle [...] alcohol or use drugs.. Her occupation is [employer]. Family Hx: I reviewed and non-contributory Current [...] Romero Strong MD Sports Orthopaedics and Arthroscopy [employer] Dept. 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
--- OUTSIDE RECORDS SUMMARY | ~2019-10-19 | XMS | Encounter Summary ---
Demographics + + + | Address | [address] | | | [place] [address] | + + + | Home Phone [...] Team Providers + +------+ + | Care Fiscal Services Director Name | Role | Phone | + [...] Description | +--------+---------+ + + + | 02/27/ | Surgery | [facility] | Romero Strong, | RIGHT DIAGNOSTIC HIP | | 2018 | | [place] [facility] | MD Tere Diallo | ARTHROSCOPY, | | | | and Healing Surgery | [address] | ACETABULAR | | | | Center Admitting | [place], [place] | CHONDROPLASTY, | | | | Desk Located on the | [address] | FEMORAL NECK | | | | 4th floor [address] | [phone] | OSTEOPLASTY, | | | | [address] [place], | | ACETABULAR RIM | | | | [place] [address] | | TRIMMING, AND LABRAL | | | | | | REPAIR | +--------+---------+ + + + Social History [...] Weight | 72.6 kg (160 lb) | 02/27/2018 6:16 AM | | | | | PST | | + + + + + | Height | 162.6 cm (5' 4") | 02/27/2018 6:16 AM | | | | | PST | | + + + + + | Body Mass Index | 27.46 | 02/27/2018 6:16 AM | | | | | PST | | + + + + + documented in this encounter Discharge Instructions Instructions Shana Díaz RN - 02/27/2018General Discharge Instructions for Same-Day Proc edure Patients: ? Remember that you are under the influence of medications. Do not stay alone. A responsible person should be with you. Do not drive, drink alcohol or make important personal or business decisions for 24 hour s. ? Resume normal activity and return to work when advised by your Doctor. Pain Management: Your last oral pain medication was given at: 975 mg Acetaminophen (Tylenol) and 5 mg Oxyco done given @ 10:30 AM. You may supplement with ront-mzq-wamejzp Acetaminophen but do NOT jouse e more than 4000 mg in 24 hours. Apply ice for 20 minutes at a time and elevate leg above th e level of the heart to help reduce swelling and pain. ? Please follow your Doctor s instructions on the medication bottle. ? Do not take pain medication on an empty stomach, as this may cause nausea and vomiting. ? Do not drive or drink alcohol while on opioid pain medication. ? If you received a Peripheral Nerve Block, please take pain medication when numbing begins to wear off or when you go to bed. This will allow for pain coverage when your nerve block wears off during the night. ? If pain is not relieved or increases despite following these instructions, please call yo ur Doctor. Diet: ? If you do not experience nausea or vomiting resume your regular diet. Eat lightly and av oid large, high fat or highly spiced meals for 24-48 hours. ? Constipation can be a side effect of opioid pain medication. Take stool softeners, incre ase dietary fiber and drink plenty of water to prevent this. Wound/Dressing/Drain Care: ? Call your Doctor if there is excessive bleeding, redness, swelling or drainage at the ope rative site. Urination: ? Please contact your Doctor or proceed to the nearest Emergency Room if you have not urina derek/voided in 8 hours after discharge. IV Site Care Instructions: ? Monitor IV site for pain, redness, swelling and/or drainage. If present, call your Docto r immediately. ? Minor redness and/or tenderness may be treated with warm, moist compresses for 24-48 hour s. If the area is still red and/or tender after this, notify your Doctor. Call your Doctor if you experience: ? Persistent nausea or vomiting. ? Fever ?101F or chills. ? Increased or uncontrolled pain despite taking pain medications. Call 911 if you experience difficulty breathing or unusual shortness of breath. After arriving home you may receive a patient satisfaction survey from "[employer]". Sergio wagner appreciate your feedback on the survey to help us provide excellent service to you and your family. documented in this encounter Medications at Time of Discharge + +-----+ +---------+ + + | Medication | Sig | Dispensed | Refills | Start | End Date | | | | | | Date | | + +-----+ +---------+ + + | DASETTA () | | | 1 | 10/12/19 | | | 135 mg-mcg oral | | | | 18 [...] + +--------+ + + + | X-RAY FLUOROSCOPY IN | Routin | 02/27/2018 | | Results for this | | OR > 1 HOUR | e | 3:58 PM | | procedure are in the | | | | PST | | results section. | + +--------+ + + + | PROCEDURE NOTE | Routin | 02/27/2018 | | Results for this | | | e | 12:11 PM | | procedure are in the | | | | PST | | results section. | + +--------+ + + + | PROCEDURE NOTE | Routin | 02/27/2018 | | Results for this | | | e | 9:09 AM | | procedure are in the | | | | PST | | results section. | + +--------+ + + + | X-RAY HIP 1 VIEW | Routin | 02/27/2018 | | Results for this | | BILATERAL | e | 8:45 AM | | procedure are in the | | | | PST | | results section. | + +--------+ + + + | ACETABULAR | Electi | 02/27/2018 | Sprain and strain | | | CHONDROPLASTY | ve | 7:27 AM | of other specified | | | | Surgic | PST | sites of hip and | | | | al | | thigh Hip | | | | | | Impingement Syndrome | | + +--------+ + + + | HCG URINE, POC | Routin | 02/27/2018 | Acetabular labrum | Results for this | | | e | 6:07 AM | tear, right, | procedure are in the | | | | PST | subsequent encounter | results section. | + +--------+ + + + | INTRAPROCEDURE | Routin | 02/27/2018 | | Results for this | | IMAGING | e | 5:59 AM | | procedure are in the | | | | PST | | results section. | + +--------+ + + + | CARDIOLOGY | | 02/27/2018 | | Results for this | | | | 12:00 AM | | procedure are in the | | | | PST | | results section. | + +--------+ + + + documented in this encounter Results X-RAY FLUOROSCOPY IN OR > 1 HOUR (02/27/2018 3:58 PM PST) + + | Specimen | + + | | + + + + + | Narrative | Performed At | + + + | - At the time of the study, no professional interpretation was | | | requested. - | | + + + PROCEDURE NOTE (02/27/2018 12:11 PM PST)PROCEDURE NOTE (02/27/2018 9:09 AM PST) + + + | Narrative | Performed At | + + + | Romero Strong MD 02/27/2018 9:21 AM Date: 02/27/2018 | | | Attending Surgeon: Romero Strong M.D. Order Processing Specialist(s): Charbel | | | MD Kurt Procedures Performed: right Diagnostic Hip | | | arthroscopy Acetabular chondroplasty Labral repair Capsular repair | | | Preoperative Diagnosis(es): labral tear articular delamination | | | Postoperative Diagnosis(es): same Implants: Toro and | | | Nephew osteraptor X 3 Preprocedure saling injection volume: 20cc | | | Pressurized: yes Indications: Annabelle Gardner is a 17 | | | y.o. female with complaints of right hip pain. Her physical exam and | | | radiographic studies demonstrated pathology consistent with | | | preoperative diagnosis. The risks and benefits of arthroscopic | | | intervention were discussed at length, and she wished to proceed. | | | Procedure: The patient was seen in the preoperative holding | | | area. The surgical site was identified and marked. The patient was | | | brought back to the operating room and placed supine on the | | | operating room table. General anesthesia was induced without | | | complication. A dose of intravenous antibiotic was administered. | | | The patient was carefully positioned onto the hip arthroscopy table. | | | Under fluoro, traction was applied and then released. The right | | | hip was prepped and draped in the usual sterile fashion. Surgical | | | pause was performed. Traction was reapplied. The anterolateral | | | portal was incised over a spinal needle. Under direct visualization, | | | a second anterior portal was incised, and diagnostic arthroscopy | | | was performed. Capsulotomy was done to allow maneuverability of | | | instruments. Arthroscopic findings include: superior wave sign, | | | focal nondisplaced anterior labral tear It was determined that | | | the labrum was amenable to repair. The acetabular rim was exposed. | | | Gentle acetabular chondroplasty was performed. Attention was turned | | | toward labral refixation. 3 suture anchors were placed | | | circumferentially to secure the labrum back to the acetabular rim. | | | This resulted in excellent repair. Attention was then turned | | | to the remainder of the central compartment exam. The femoral head | | | articular surface was smooth. The acetabular articular cartilage was | | | smooth. The ligamentum teres was intact. The central | | | compartment work was complete. The traction was released. Total | | | traction time was 33 minutes. The hip was brought into flexion, | | | internal and external rotation. There was no femoral sided | | | evidence of impingement and a normal femoral head neck offset. It | | | was felt that femoral neck osteoplasty was not indicated. Once | | | this was done, the peripheral compartment was irrigated and drained. | | | Attention was then turned to capsular closure. Vicryl sutures were | | | used to close the capsule anatomically The portals were closed | | | with prolene. The hip was injected with 0.2% ropivacaine, 15 mL. | | | Sterile dressings were applied. The patient was extubated and | | | brought to the recovery room in stable condition. I was present | | | for the entirety of this case. Estimated Blood Loss: | | | Minimal. Complications: None noted. Discharge Instructions: | | | The patient is 50% weightbearing on the right lower extremity with | | | crutches x2 weeks. She will follow the standard labral repair | | | protocol and follow up next week for suture removal. Romero | | | MD [facility] Exchange Administrator | | | Dept. Orthopaedic Surgery and Rehabilitation [facility] | | | [place] | | + + + X-RAY HIP 1 VIEW BILATERAL (02/27/2018 8:45 AM PST) + + | Specimen | + + | | + + + + + | Narrative | Performed At | + + + | - At the time of the study, no professional interpretation was | | | requested. - | | + + + HCG URINE, POC (02/27/2018 6:07 AM PST) + + + + + + | Component | Value | Ref Range | Performed | Pathologist | | | | | At | Signature | + + + + + + | HCG URINE, | Negative | Negative | [facility], | | | POC | | | POINT OF | | | | | | CARE TESTS | | + + + + + + + + | Specimen | + + | Urine - Urine | | (substance) | + + + + + + + | Performing | Address | City/State/Zipcode | Phone Number | | Organization | | | | + + + + + | [facility] | [address] | [place] [address] | | | OF CARE TESTS | | | | + + + + + INTRAPROCEDURE IMAGING (02/27/2018 5:59 AM PST) + + | Specimen | + + | | + + + + + | Narrative | Performed At | + + + | See admission or procedure notes for details of any intraprocedure | | | images obtained. | | + + + CARDIOLOGY (02/27/2018 12:00 AM PST) + + + | Narrative | Performed At | + + + | | | + + + documented in this encounter Visit Diagnoses Not on filedocumented in this encounter Administered Medications + +--------+ +--------+------+------+ | Medication Order | MAR | Action | Dose | Rate | Site | | | Action | Date | | | | + +--------+ +--------+------+------+ | acetaminophen (TYLENOL) tablet | Given | 02/28/20 | 975 mg | | | | 975 mg 975 mg, oral, | | 18 10:30 | | | | | POSTPROCEDURE ONCE, 1 dose, Wed | | AM PST | | | | | 02/27/18 at 1030 | | | | | | + +--------+ +--------+------+------+ +---+---+ | | | +---+---+ + +-------+ +---+---+--------+ | EPI 1:1000-LR injection | Given | 20 | | | Right | | INTRAPROCEDURE PRN, Starting Wed | | 18 8:03 | | | Hip | | 02/27/18 at 0802, Until Wed | | AM PST | | | | | 02/27/18 at 0903 | | | | | | + +-------+ +---+---+--------+ +-------+ +---+---+--------+ | Given | 20 | | | Right | | | 18 8:02 | | | Hip | | | AM PST | | | | +-------+ +---+---+--------+ +---+---+ | | | +---+---+ + +-------+ +--------+---+---+ | fentaNYL (SUBLIMAZE) injection | Given | 02/28/20 | 25 mcg | | | | 25 mcg 25 mcg, intravenous, | | 18 9:27 | | | | | POSTPROCEDURE PRN, 8 doses, | | AM PST | | | | | Starting Sun02/27/18 at 0750, | | | | | | | Until Sun02/27/18 at 1811, | | | | | | | severe pain while in Phase I | | | | | | | Recovery | | | | | | + +-------+ +--------+---+---+ +-------+ +--------+---+---+ | Given | 02/28/20 | 25 mcg | | | | | 18 9:21 | | | | | | AM PST | | | | +-------+ +--------+---+---+ +---+---+ | | | +---+---+ + + [...] | | | | + + +---+---+---+ + +---+ | | | + +---+ | lactated Ringers IV 500 mL, | | | intravenous, POSTPROCEDURE PRN, 1 | | | dose, Starting Sun02/27/18 at | | | 0750, Until Sun02/27/18 at 1811, | | | nausea/vomiting due to | | | dehydration | | + +---+ | | | + +---+ | lactated Ringers IV 500 mL, | | | intravenous, POSTPROCEDURE PRN, 1 | | | dose, Starting Sun02/27/18 at | | | 0751, Until Sun02/27/18 at 1811, | | | systolic blood pressure less | | | than 80 mmHg. 1st line | | + +---+ | | | + +---+ | lidocaine (XYLOCAINE) 10 mg/mL | | | (1 %) injection subcutaneous, | | | PREPROCEDURE PRN, Starting Wed | | | 02/27/18 at 0559, Until Sun | | | 02/27/18 at 181, IV start | | + +---+ | | | + +---+ | meperidine (DEMEROL) injection | | | 12.5 mg 12.5 mg, intravenous, | | | POSTPROCEDURE PRN, 1 dose, | | | Starting Sun02/27/18 at 0909, | | | Until Sun02/27/18 at 1811, | | | shivering | | + +---+ | | | + +---+ | naloxone (NARCAN) injection | | | intravenous, POSTPROCEDURE PRN, | | | Starting Sun02/27/18 at 0750, | | | Until Sun02/27/18 at 1811, | | | hypopnea | | + +---+ | | | + +---+ | ondansetron ODT (ZOFRAN ODT) | | | tablet 4 mg 4 mg, oral, EVERY 8 | | | HOURS NEEDED, Starting Wed | | | 02/27/18 at 0907, Until Wed | | | 02/27/18 at 1810, | | | nausea/vomiting, first line | | + +---+ | | | + +---+ + +-------+ +------+---+---+ | oxyCODONE (immediate release) | Given | 02/28/20 | 5 mg | | | | (ROXICODONE) tablet 5-10 mg 5-10 | | 18 10:30 | | | | | mg, oral, EVERY 4 HOURS | | AM PST | | | | | NEEDED, Starting Sun02/27/18 at | | | | | | | 0906, Until Sun02/27/18 at 1810, | | | | | | | moderate pain | | | | | | + +-------+ +------+---+---+ + +---+ | | | + +---+ | promethazine (PHENERGAN) | | | injection 6.25-12.5 mg 6.25-12.5 | | | mg, intravenous, POSTPROCEDURE | | | PRN, 1 dose, Starting Wed | | | 02/27/18 at 0750, Until Wed | | | 02/27/18 at 1811, | | | nausea/vomiting, 1st line | | + +---+ | | | + +---+ + +-------+ +-------+---+--------+ | ropivacaine (PF) (NAROPIN) | Given | 02/28/20 | 40 mL | | Right | | injection INTRAPROCEDURE PRN, | | 18 8:57 | | | Hip | | Starting 02/27/18 at 0857, | | AM PST | | | | | Until Sun02/27/18 at 0903 | | | | | | + +-------+ +-------+---+--------+ +---+---+ | | | +---+---+ documented in this encounter
--- OUTSIDE RECORDS SUMMARY | ~2019-10-19 | XMS | Encounter Summary ---
Demographics + + + | Address | [address] | | | [place] [address] | + + + | Home Phone | | + + + | Preferred Language | Unknown | + + + | Marital Status | Single | + + + | Shinto Affiliation | NRP | + + + | Race | White | + + + | Ethnic Group | Not or | + + + Author + + + | Author | [facility] | + + + | Organization | [facility] | + + + | Address | Unknown | + + + | Phone | Unavailable | + + + Support + + +---------+ + | Name | Relationship | Address | Phone | + + +---------+ + | Regina Liu | ECON | Unknown | | + + +---------+ + Care Team Providers + +------+ + | Care Retaining Room Cutter Name | Role | Phone | + [...] | | specified | [address] | [facility] | | | | | joint | [place] | for Health | | | | | disorders, | [address] | and Healing, | | | | | right hip | [place], [place] | [address], | | | | | Other sprain | [address] | 1st Floor | | | | | of right | Phone: | [place], [place] | | | | | hip, initial | [phone] | [address] | | | | | encounter | Fax: | Phone: | | | | | | [phone] | [phone] | | | | | | | Fax: | | | | | | | [phone] | +--------+--------+ + + + + Encounter [...] joint (Primary Dx) | | | | [facility] | [address] [facility], | | | | | [address] | [place] [address] | | | | | [facility] | [phone] | | | | | and Healing, | | | | | | Building , | | | | | | Floor [place], [place] | | | | | | [address] | | | | | | [phone] | | | +--------+---------+ + + + [...] - 02/21/2018 1:15 PM PST Insurance: Payor: [employer] / Plan: Exchangery / Product Type: PPO / Non-Medicare [facility]YSICAL [facility] EVALUATION No past medical history [...] Moderate - Moderate complexity Complexity: Moderate - 01332 The patient requires services that can be [...] status. [facility] 1ST FLOOR Scheduled Appointment time: 1:15 [...] joint Next progress report 04/22/2018 Insurance: Payor: [employer] / Plan: Exchangery / Product Type: PPO / G-code:- code [...] | + +--------+ + + + | MS THERAPEUTIC | Routin | 02/21/2018 | Pain [...]
--- OUTSIDE RECORDS SUMMARY | ~2019-10-19 | XMS | Encounter Summary ---
Demographics + + + | Address | [address] | | | [place] [address] | + + + | Home Phone | | + + + | Preferred Language | Unknown | + + + | Marital Status | Single | + + + | Quaker Affiliation | NRP | + + + | Race | White | + + + | Ethnic Group | Not or | + + + Author + + + | Author | [facility] | + + + | Organization | [facility] | + + + | Address | Unknown | + + + | Phone | Unavailable | + + + Support + + +---------+ + | Name | Relationship | Address | Phone | + + +---------+ + | Regina Liu | ECON | Unknown | | + + +---------+ + Care Team Providers + +------+ + | Care Assistant Signal Maintainer Name | Role | Phone | + +------+ + | Ekaterina Head | PCP | | + +------+ + Encounter Details +--------+ + + + + | Date | Type | Department | Care Team | Description | +--------+ + + + + | 06/21/ | Hospital | Radiology/Imaging | Romero Strong S, | | | 2019 | Encounter | Lab at [facility] [address] | [address] | | | | | [facility] for | [facility] | | | | | Health and [facility], | [place], [place] | | | | | | [address] | | | | | Floor [place], [place] | [phone] | | | | | [address] | | | | | | [phone] | | | +--------+ + + + [...] X-RAY PELVIS 2 VIEWS | Routin | 06/21/2018 | Pain of right hip | Results for this | | | e | 1:17 PM | joint | procedure are in the | | | | PDT | | results section. | + +--------+ [...]
--- OUTSIDE RECORDS SUMMARY | ~2019-10-19 | XMS | Encounter Summary ---
Demographics + + + | Address | [address] | | | [place] [address] | + + + | Home Phone | | + + + | Preferred Language | Unknown | + + + | Marital Status | Single | + + + | Confucianist Affiliation | NRP | + + + [...] Team Providers + +------+ + | Care Investigator Internal Revenue Name | Role | Phone | + +------+ + | Ekaterina Head | PCP | | + +------+ + Reason for Visit + + + | Reason | Comments | + + + | Stitches | fell out ( 1) | + + + Encounter Details +--------+ + + + + | Date | Type | Department | Care Team | Description | +--------+ + + + + | 03/06/ | Telephone | Orthopaedics | Romero Strong, | Devin (fell out ( | | 2018 | | [facility] at [place] | [address] | 1)) | | | | for Health and | [facility] | | | | | Healing [address] | [place], [place] | | | | | [facility] for | [address] | | | | | Health and Healing, | [phone] | | | | | [facility] | | | | | | Floor [facility] [place] | | | | | | [address] | | | | | | [phone] | | | +--------+ + + + [...]
--- OUTSIDE RECORDS SUMMARY | ~2019-10-19 | XMS | Encounter Summary ---
Demographics + + + | Address | [address] | | | [place] [address] | + + + | Home Phone | | + + + | Preferred Language | Unknown | + + + | Marital Status | Single | + + + | Samaritan Affiliation | NRP | + + + | Race | White | + + + | Ethnic Group | Not or | + + + Author + + + | Author | [facility] | + + + | Organization | [facility] | + + + | Address | Unknown | + + + | Phone | Unavailable | + + + Support + + +---------+ + | Name | Relationship | Address | Phone | + + +---------+ + | Regina Liu | ECON | Unknown | | + + +---------+ + Care Team Providers + +------+ + | Care Research Hydraulic Engineer Name | Role | Phone | + [...] + + | 02/27/ | Surgery | [facility] | Romero Strong, | RIGHT DIAGNOSTIC HIP | | 2018 | | [place] [facility] | MD Tere Diallo | ARTHROSCOPY, | | | | and Healing Surgery | [address] | ACETABULAR | | | | Center Admitting | [place], [place] | CHONDROPLASTY, | | | | Desk Located on the | [address] | FEMORAL NECK | | | | 4th floor [address] | [phone] | OSTEOPLASTY, | | | | [address] [place], | | ACETABULAR RIM | | | | [place] [address] | | TRIMMING, AND LABRAL | | [...] @ 10:30 AM. You may supplement with mgfa-zpi-djpznhq Acetaminophen but do NOT josue e more than 4000 mg in 24 [...] | | Attending Surgeon: Romero Strong M.D. Automotive Engineering Teacher(s): Charbel | | | MD Kurt Procedures [...] | MD [facility] Pin Drafter Operator | | | Dept. Orthopaedic Surgery and Rehabilitation [facility] | | | [place] | | + + + X-RAY HIP [...] [facility] | [address] | [place] [address] | | | OF CARE TESTS | [...]
--- OUTSIDE RECORDS SUMMARY | ~2019-10-19 | XMS | Encounter Summary ---
Demographics + + + | Address | [address] | | | [place] [address] | + + + | Home Phone | | + + + | Preferred Language | Unknown | + + + | Marital Status | Single | + + + | Rastafari Affiliation | NRP | + + + | Race | White | + + + | Ethnic Group | Not or | + + + Author + + + | Author | [facility] | + + + | Organization | [facility] | + + + | Address | Unknown | + + + | Phone | Unavailable | + + + Support + + +---------+ + | Name | Relationship | Address | Phone | + + +---------+ + | Regina Liu | ECON | Unknown | | + + +---------+ + Care Team Providers + +------+ + | Care Pari Mutuel Ticket Cashier Name | Role | Phone | + [...] | | | | | encounter | C[place], [place] | | | | | | Procedures | [address] | | | | | | PHYSICAL | Phone: | | | | | | THERAPY | [phone] | | | | | | REFERRAL | Fax: | | | | | | | [phone] | | +--------+--------+ + + + + [...] | 2018 | Visit | [facility] [place] | [place] [address] [address] | tear, right, | | | | for Health and | [address] [place], | subsequent encounter | | | | Healing [address] | [place] [address] | (Primary Dx) | | | | [address] [place] for | [phone] | | | | | Health and Healing, | | | | | | | | | | | | Floor [place], [place] | | | | | | [address] | | | | | | [phone] | | | +--------+---------+ + + + [...]
--- OUTSIDE RECORDS SUMMARY | ~2019-10-19 | XMS | Encounter Summary ---
Demographics + + + | Address | [address] | | | [place] [address] | + + + | Home Phone | | + + + | Preferred Language | Unknown | + + + | Marital Status | Single | + + + | Hinduism Affiliation | NRP | + + + | Race | White | + + + | Ethnic Group | Not or | + + + Author + + + | Author | [facility] | + + + | Organization | [facility] | + + + | Address | Unknown | + + + | Phone | Unavailable | + + + Support + + +---------+ + | Name | Relationship | Address | Phone | + + +---------+ + | Regina Liu | ECON | Unknown | | + + +---------+ + Care Team Providers + +------+ + | Care Geriatric Social Worker Name | Role | Phone | [...] | Visit | Faculty at Center | [address] | joint (Primary Dx) | | | | for Health and | [address] | | | | | Healing [address] | [place], [place] | | | | | [facility] for | [address] | | | | | Health and Healing, | [phone] | | | | | [facility] | | | | | | Floor [place], [place] | | | | | | [address] | | | | | | [phone] | | | +--------+---------+ + + + [...] Romero Strong MD Sports Orthopaedics and Arthroscopy Hyperbaric Tech Dept. Orthopaedic Surgery and Rehabilitation [facility] documented in this e ncounter Plan [...]
--- OUTSIDE RECORDS SUMMARY | ~2019-10-19 | XMS | Encounter Summary ---
Demographics + + + | Address | [address] | | | [place] [address] | + + + | Home Phone | | + + + | Preferred Language | Unknown | + + + | Marital Status | Single | + + + | Yazdanism Affiliation | NRP | + + + | Race | White | + + + | Ethnic Group | Not or | + + + Author + + + | Organization | Unknown | + + + | Address | Unknown | + + + | Phone | Unavailable | + + + Support + + +---------+ + | Name | Relationship | Address | Phone | + + +---------+ + | Regina Liu | ECON | Unknown | | + + +---------+ + Care Team Providers + +------+ + | Care Open Tenter Operator Name | Role | Phone | + +------+ + | Ekaterina Head | PCP | | + +------+ + Encounter Details +--------+--------+ + + + | Date | Type | Department | Care Team | Description | +--------+--------+ + + + | 03/27/ | Travel | | | | | 2020 | | | | | +--------+--------+ + + + Social History + +-------+ [...]
--- OUTSIDE RECORDS SUMMARY | ~2019-10-19 | XMS | Encounter Summary ---
Demographics + + + | Address | [address] | | | [place] [address] | + + + | Home Phone [...] + + + | Author | [facility] | + + + | Organization | [facility] | + + + | Address | Unknown | + + + | Phone | Unavailable | + + + Support + + +---------+ + | Name | Relationship | Address | Phone | + + +---------+ + | Regina Liu | ECON | Unknown | | + + +---------+ + Care Team Providers + +------+ + | Care Livestock Broker Name | Role | Phone | + [...] [address] | | | | | [facility] for | [facility] | | | | | Health and [facility], | [place], [place] | | | | | | [address] | | | | | Floor [place], [place] | [phone] | | | | | [address] | | | | | | [phone] | | | +--------+ + + + [...]
--- OUTSIDE RECORDS SUMMARY | ~2019-10-19 | XMS | Encounter Summary ---
Demographics + + + | Address | [address] | | | [place] [address] | + + + | Home Phone | | + + + | Preferred Language | Unknown | + + + | Marital Status | Single | + + + | Spiritism Affiliation | NRP | + + + | Race | White | + + + | Ethnic Group | Not or | + + + Author + + + | Author | [facility] | + + + | Organization | [facility] | + + + | Address | Unknown | + + + | Phone | Unavailable | + + + Support + + +---------+ + | Name | Relationship | Address | Phone | + + +---------+ + | Regina Liu | ECON | Unknown | | + + +---------+ + Care Team Providers + +------+ + | Care Pharmacy Student Name | Role | Phone | + [...] + + + + | 02/27/ | Hospital | [facility] | Romero Strong, | | | 2018 | Encounter | STAY [address] | [address] [facility] | | | | | Ruth Mailcode: [facility] | [address] | | | | | [facility] | [place], [place] | | | | | Health and [facility], | [address] | | | | | [place] [address] | [phone] | | | | | [place], [place] | | | | | | [address] | | | | | | [phone] | | | +--------+ + + + [...] @ 10:30 AM. You may supplement with [id number] Acetaminophen but do NOT josue e more [...] a patient satisfaction survey from "[employer]". We w vjld appreciate your feedback on the survey to [...] | | Attending Surgeon: Romero Strong M.D. 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 Orthopaedic Surgery and [facility] | | | [place] | | + + + X-RAY HIP [...] [facility] | [address] | [place] [address] | | | OF CARE TESTS | [...] | Acetabular labrum tear, right, subsequent encounter | + + documented in this encounter Administered Medications + +--------+ [...] | | | 0751, Until Sun02/27/18 at 181, | | | systolic blood pressure less | | | than 80 mmHg. 1st line | | + +---+ | | | + +---+ | lidocaine (XYLOCAINE) 10 mg/mL | | | (1 %) injection subcutaneous, | | | PREPROCEDURE PRN, Starting Wed | | | 02/27/18 at 0559, Until Wed | | | 02/27/18 at 1811, IV start | | + +---+ | [...] 02/27/18 at 1811, | | | nausea/vomiting, first line | [...] | | | 0906, Until Sun02/27/18 at 181, | | | | | | | [...] + +---+ | | | + +---+ documented in this encounter
--- OUTSIDE RECORDS SUMMARY | ~2019-10-19 | XMS | Encounter Summary ---
Demographics + + + | Address | [address] | | | [place] [address] | + + + | Home Phone | | + + + | Preferred Language | Unknown | + + + | Marital Status | Single | + + + | Restorationism Affiliation | NRP | + + + [...] Team Providers + +------+ + | Care Wool Fleece Sorter Name | Role | Phone | + +------+ + | Ekaterina Head | PCP | | + +------+ + Reason for Visit + + + | Reason | Comments | + + + | Pre-op evaluation | | + + + Encounter Details +--------+ + + + + | Date | Type | Department | Care Team | Description | +--------+ + + + + | 02/22/ | Telephone-S | Preoperative | | Pre-op evaluation | | 2018 | cheduled | [facility] at | | | | | | [facility] 4th Floor Day | | | | | | [address] | | | | | | Callie Tamanna | | | | | | Mailcode: [facility] | | | | | | [place] | | | | | | [address] [place], [place] | | | | | | [address] | | | | | | [phone] | | | +--------+ + + + + Anesthesia Record + + + + + | Procedure Name | Responsible | Anesthesia Start | Anesthesia Stop Time | | | Anesthesiologist | Time | | + + + + + | RIGHT DIAGNOSTIC HIP | Tamiko Anderson | 02/27/18723 | 02/27/18908 | | [...] | | | 7 | | reviewed, VAISHNAVI held, anesthetic plan made or approved by [...] | Meds | +------+ + + + No medications | on file. | + + + + + | No agents on file. | + + + + | No [...] via | 02/27/18 0749 by | 02/27/18 0900 by | | | procedure documentation); | Ekaterina Ojeda, | Ekaterina Ojeda, | | | Endotracheal Tube; 7; Oral; | MANAGER COMMUNITY RELATIONS | MANAGER COMMUNITY RELATIONS | | | Cuffed; 02/27/18; 0900 | [...] + + documented as of this encounter Patient Instructions Patient Instructions Nano Benitez RN - 02/22/2018 10:21 AM PSTPREOPERATIVE INSTRUCTION S Do not eat or drink anything after midnight the night before surgery. TAKE the following medications with a sip of water on the morning of surgery: DASETTA (28) 1 MG-35 MCG TABLET Do NOT take the following medications on the morning of surgery: Unless otherwise directed by your surgeon, do not take any Aspirin, vitamin E or non-amanda roidal anti-inflammatory (NSAIDs i.e. Advil, Aleve, Ibuprofen) or herbal supplements seven d ays prior to your surgery. These drugs may interfere with normal blood clotting and may caus e excessive bleeding and bruising during or after the surgery. If you need a pain medication for general purposes, use Tylenol as directed. If you are in doubt about any medications that you are taking, please contact our office . Important Guidelines Do not shave the surgical area Do not smoke, drink alcohol or use recreational drugs for 24 hours before your surgery Do not eat any hard candy or chew gum after midnight the night before your surgery. Watch for any change in your health condition. Let your surgeon know right away if you do not feel well. Do not wear makeup, perfume, lotions or powder. Remove any nail hungarian from at least one fingernail. Do not wear any jewelry to the hospital. Wear loose, comfortable clothing. Bring the case and solution for your contact lenses or wear your glasses. Leave all your valuables at home. Allow enough travel time so you re not late for your check in for surgery. Take a bath or shower and remember to shampoo your hair using your usual hair product be fore your arrival at the hospital. Please remember to brush your teeth the night before and the morning of your procedure. Surgery Check in Locations [facility], fourth floor Surgery Check in Time: Someone from your surgeon's office or [facility] will provide you with information regarding your check in time. If you have any questions about this, pl ease contact your surgeon's office. Going Home Your surgical team will decide when you are medically ready to go home. If you are released to go home on the same day as your procedure/surgery please note the following: You will not be able to drive. You will be required to have a competent adult drive you or accompany you by taxi or pub lic transportation on the day of discharge. It is also required that you have a competent adult assist you and look after you on the first night after you have undergone regional blocks (72 hours for patients going home with regional block pump), deep sedation, and/or general anesthesia. If you have questions or concerns after you go home, call your doctor s office. If it is after office hours, call the [facility] ripening room operator at [phone] and ask them to page your doc tor. documented in this encounter Plan of Treatment Not on filedocumented as of this encounter Visit Diagnoses Not on filedocumented in this encounter"
--- OUTSIDE RECORDS SUMMARY | ~2019-10-19 | XMS | Clinical Summary ---
Demographics + + + | Address | [address] | | | [place] [address] | + + + | Home Phone [...] Team Providers + +------+ + | Care China Painter Name | Role | Phone | + +------+ + | Ekaterina Head | PCP | | + +------+ + Source Comments YANI is fully live on both [facility] Ambulatory and [facility] InPatient.[facility] Allergies No Known Allergies Medications + +-----+ [...] / Lot | + +------+--------+ +--------+--------+--------+ | [place] Suture 2.3mm 2 | | Right: | HANNAH & | | 11/06/ | [id number] | | Osteoraptor Ultrabraid | | Hip | NEPHEW | | 2022 | 91 / | | Cobraided White - | | | | | | / | | [id number]: Qty: 3 on | | | | | | 92 | | 02/27/2018 by Romero Strong | | | | | | | | MD [facility] | | | | | | [...] | x | 08-Pre | 1 | [address] | | | | [place] | | sent | | [place], | | | | [place] | | | | [place] [address] | | + +--------+ +--------+ + +------+ [...] rafi | | | 1 (Home) | [address] | + +--------+ +--------+ + +
--- OUTSIDE RECORDS SUMMARY | ~2019-10-19 | XMS | Encounter Summary ---
Demographics + + + | Address | [address] | | | [place] [address] | + + + | Home Phone [...] Author + + + | Author | [facility] | + + + | Organization | [facility] | + + + | Address | Unknown | + + + | Phone | Unavailable | + + + Support + + +---------+ + | Name | Relationship | Address | Phone | + + +---------+ + | Regina Liu | ECON | Unknown | | + + +---------+ + Care Team Providers + +------+ + | Care Shirt Finisher Name | Role | Phone | [...] + + | 02/27/ | Hospital | [facility] | Romero Strong, | | | 2018 | Encounter | [address] | [address] [facility] | | | | | Ruth Mailcode: [facility] | [address] | | | | | [facility] | [place], [place] | | | | | Health and [facility], | [address] | | | | | [place] [address] | [phone] | | | | | [place], [place] | | | | | | [address] | | | | | | [phone] | | | +--------+ + + + [...] @ 10:30 AM. You may supplement with [id number]-[id number] Acetaminophen but do NOT josue e more [...] | | Attending Surgeon: Romero Strong M.D. Resilient Tile Installer(s): Charbel | | | MD Kurt Procedures Performed: right Diagnostic Hip | | | arthroscopy Acetabular chondroplasty Labral repair Capsular repair | | | Preoperative Diagnosis(es): labral tear articular delamination | | | Postoperative Diagnosis(es): same Implants: Toro and | | | [employer] osteraptor X 3 Preprocedure saling injection volume: [...] | MD [facility] Site Safety Representative | | | Dept. Orthopaedic Surgery and Rehabilitation [facility] | | | [place] | | + + + X-RAY HIP [...] POINT | [address] | [place] [address] | | | OF CARE TESTS | [...]
--- OUTSIDE RECORDS SUMMARY | ~2019-10-19 | XMS | Encounter Summary ---
Demographics + + + | Address | [address] | | | [place] [address] | + + + | Home Phone | | + + + | Preferred Language | Unknown | + + + | Marital Status | Single | + + + | Advent Affiliation | NRP | + + + | Race | White | + + + | Ethnic Group | Not or | + + + Author + + + | Author | [facility] | + + + | Organization | [facility] | + + + | Address | Unknown | + + + | Phone | Unavailable | + + + Support + + +---------+ + | Name | Relationship | Address | Phone | + + +---------+ + | Regina Liu | ECON | Unknown | | + + +---------+ + Care Team Providers + +------+ + | Care Backup Sawyer Name | Role | Phone | + +------+ + | Ekaterina Head | PCP | | + +------+ + Encounter Details +--------+ + + + + | Date | Type | Department | Care Team | Description | +--------+ + + + + | 02/27/ | Procedure | [facility] | | | | 2018 | Pass | [facility] | | | | | | and Healing Surgery | | | | | | Center Admitting | | | | | | Desk Located on the | | | | | | 4th floor [address] | | | | | | [address] [place], | | | | | | [place] [address] | | | +--------+ + + + [...]
--- OUTSIDE RECORDS SUMMARY | ~2019-10-19 | XMS | Encounter Summary ---
Demographics + + + | Address | [address] | | | [place] [address] | + + + | Home Phone | | + + + | Preferred Language | Unknown | + + + | Marital Status | Single | + + + | Hindu Affiliation | NRP | + + + [...] Team Providers + +------+ + | Care Junior Underwriter Name | Role | Phone | + [...]
--- OUTSIDE RECORDS SUMMARY | ~2019-10-19 | XMS | Encounter Summary ---
Demographics + + + | Address | [address] | | | [place] [address] | + + + | Home Phone | | + + + | Preferred Language | Unknown | + + + | Marital Status | Single | + + + | Hoahaoism Affiliation | NRP | + + + | Race | White | + + + | Ethnic Group | Not or | + + + Author + + + | Author | [facility] | + + + | Organization | [facility] | + + + | Address | Unknown | + + + | Phone | Unavailable | + + + Support + + +---------+ + | Name | Relationship | Address | Phone | + + +---------+ + | Regina Liu | ECON | Unknown | | + + +---------+ + Care Team Providers + +------+ + | Care Deputy Harbormaster Name | Role | Phone | + +------+ + | Ekaterina Head | PCP | | + +------+ + Encounter Details +--------+ + + + + | Date | Type | Department | Care Team | Description | +--------+ + + + + | 10/04/ | Documentati | Orthopaedics | Romero Strong, | | | 2018 | on | [facility] at [place] | [address] | | | | | for Health and | [address] | | | | | Healing [address] | [place], [place] | | | | | [facility] for | [address] | | | | | Health and Healing, | [phone] | | | | | [facility] | | | | | | Floor [place], [place] | | | | | | [address] | | | | | | [phone] | | | +--------+ + + + [...]
--- OUTSIDE RECORDS SUMMARY | ~2019-10-19 | XMS | Encounter Summary ---
Demographics + + + | Address | [address] | | | [place] [address] | + + + | Home Phone | | + + + | Preferred Language | Unknown | + + + | Marital Status | Single | + + + | Yazidi Affiliation | NRP | + + + | Race | White | + + + | Ethnic Group | Not or | + + + Author + + + | Author | [facility] | + + + | Organization | [facility] | + + + | Address | Unknown | + + + | Phone | Unavailable | + + + Support + + +---------+ + | Name | Relationship | Address | Phone | + + +---------+ + | Regina Liu | ECON | Unknown | | + + +---------+ + Care Team Providers + +------+ + | Care Senior Computer Specialist Name | Role | Phone | [...] | | 2018 | | [facility] at [place] | [address] | 1)) | | | | for Health and | [facility] | | | | | Healing [address] | [place], [place] | | | | | [facility] for | [address] | | | | | Health and Healing, | [phone] | | | | | [facility] | | | | | | Floor [facility] [place] | | | | | | [address] | | | | | | [phone] | | | +--------+ + + + [...]
--- OUTSIDE RECORDS SUMMARY | ~2019-10-19 | XMS | Encounter Summary ---
Demographics + + + | Address | [address] | | | [place] [address] | + + + | Home Phone [...] Team Providers + +------+ + | Care Document Coordinator Name | Role | Phone | [...] [place] | | | | | | [address] [place], [place] | | | | | | [address] | | | | | | [phone] | | | +--------+ + + + [...] | | Endotracheal Tube; 7; Oral; | INSTRUCTIONAL TECHNOLOGY DIRECTOR | INSTRUCTIONAL TECHNOLOGY DIRECTOR | | | Cuffed; 02/27/18; 0900 | [...] perfume, lotions or powder. Remove any nail danish from at least one fingernail. Do not [...] of your procedure. Surgery Check in Locations [facility] Day Stay Center for [facility]aling, fourth floor Surgery Check in Time: Someone from your surgeon's office or [facility] will provide you with information regarding your [...] it is after office hours, call the [facility] optical goods drill operator at [phone] and ask them to page your doc tor. documented in this encounter Plan of Treatment Not on filedocumented as of this encounter Visit Diagnoses Not on filedocumented in this encounter"
[~2019-10-19 02:45] MED LIST: IBUPROFEN400 MG PO; VITAMIN D5000 UNIT PO
[2019-10-19] MEDS ORDERED: DASETTA1 EAC1 PO (03:03)
[2019-10-19] MEDS ORDERED: MAGNESIUM400 MG PO (03:04)
[2019-10-19] MEDS ORDERED: DIGESTIVE PROB1 EAC1 PO (03:05)
[2019-10-19] MEDS ORDERED: OMEPRAZOLE20 MG PO (04:13)
== END 2019-10-19 05:52 | disposition home or self-care (01) ==
LOC: ED 02:45
DX: K27.9 Peptic ulcer, site unspecified, unspecified as acute or chronic, without hemorrhage or perforation (principal)
CPT/HCPCS: 74177; 80053; 81001; 83690; 84703; 85025; 87088; 96361; 96375; 96376; 99284-25; C9113; J1170; J7030; Q9967

== ENCOUNTER 2020-02-23 11:59 | Day surgery (SDC) | payer BC ==
[~2020-02-23] VITALS: Ht 162.6 cm; Wt 80.9 kg
--- NOTE | ~2020-02-23 | OR ---
[facility] [address] [place], [place] [address] Draft DATE OF OPERATION: 02/23/2020 SURGEON: Phil Price MD PREOPERATIVE DIAGNOSES: 1. Epigastric pain, persistent, nonresponsive to PPI medication and Carafate. 2. Negative gallbladder ultrasound. POSTOPERATIVE DIAGNOSIS: Minimal distal esophagitis, reasonably intact flap valve. PROCEDURE: Esophagogastroduodenoscopy with biopsy. ANESTHESIA: Intravenous sedation, fentanyl 100 mcg and Versed 7 mg. INDICATIONS: A 19-year-old white woman, patient of Farhan Coon, who has had epigastric pain as well as some right subcostal pain. The pain originates actually in the right posterior thoracic area. She did have a gallbladder ultrasound, which was negative for stones. She does have family history of reflux including her brother, Ched had cholecystectomy as well as ultimately anti-reflux surgery for reflux esophagitis. I had performed Hill repair on him after failed Oscar fundoplication elsewhere; he was 15 years old at that time. The patient had empiric treatment with Prilosec and subsequent Carafate, which was of little benefit. She is admitted at this time to undergo upper endoscopy to assess for reflux disease, peptic disease, and so on. If negative, consideration will be made for a CCK-HIDA test. FINDINGS: Esophagus, stomach, and duodenum were relatively normal overall. There was no sign of large hiatal hernia. The flap valve could be forwarded with retro-flexion and pulling of the scope, but certainly only minimal esophagitis if any was noted. CLOtest was negative. There was no sign of ulcer. DESCRIPTION OF PROCEDURE: The patient was brought to the endoscopy suite and given topical lidocaine spray anesthesia, placed in the lateral decubitus position. She was given intravenous sedation with intravenous fentanyl and Versed to the point of slurred speech and nystagmus with full cardiopulmonary monitoring. A bite block was placed. An [employer] PATIENT NAME: KANG CANALES OPERATIVE REPORT DATE OF : [birth year] REPORT #: [id number] PHYSICIAN: PHIL PRICE MD PCP: KYMBERLY RUELAS PAC REPORT IS CONFIDENTIAL AND NOT TO BE RELEASED WITHOUT AUTHORIZATION [facility] [address] [place], [place] [address] Draft video upper endoscope was passed into the hypopharynx. The vocal cords were transiently visualized, was normal. The scope was advanced to the esophagus without problem throughout its length, it appeared quite good. There was no sign of Elliott's. No sign of stricture, severe inflammation. The scope was passed to the stomach, which was insufflated with air. Some gastric juices were suctioned free. Some bile was noted. Rugal folds were normal. Pylorus was normal scope. Scope was passed through into the duodenal, which was normal. Biopsies were taken of the duodenum to assess for celiac disease. The scope was withdrawn and biopsies then taken of the antrum for both FER and pathologic testing. Retroflexed view showed an intact flap valve with various maneuvers in the J-position. Flap could be sorted, but in general was in good condition. The scope was straightened and withdrawn to allow for biopsies of the distal esophagus and only minimal inflammation was noted. The midesophagus was biopsied, which was entirely normal. The scope was carefully withdrawn. There were no other findings of note. The scope was removed. The patient was taken to the recovery room in good condition. CONCLUDING DIAGNOSIS: Quite unlikely that this represented reflux or peptic problems. At this point, we would recommend CCK-HIDA test; very likely this will be positive. She will see us back in the office after CCK-HIDA test was performed. MD CASIE Nicolas/ROSALIE /[id number] Copies: ~ PATIENT NAME: KANG CANALES OPERATIVE REPORT DATE OF : [birth year] REPORT #: [id number] PHYSICIAN: PHIL PRICE MD PCP: KYMBERLY RUELAS PAC REPORT IS CONFIDENTIAL AND NOT TO BE RELEASED WITHOUT AUTHORIZATION
[~2020-02-23 11:59] MED LIST changes: +BUPROPION XL150 MG PO; +DASETTA1 EAC1 PO; +DIGESTIVE PROB1 EAC1 PO; +MAGNESIUM400 MG PO; +NITROFURANTOIN100 MG PO; +OMEPRAZOLE20 MG PO; +SUCRALFATE1 GM PO
--- NOTE | 2020-02-23 13:24 | NUR ---
02/23/20 1324 Yanira Mccracken 1320- PT ARRIVES TO PACU ALERT AND ORIENTED. PT REPORTS NO PAIN OR NAUSEA. PT DOES HAVE THE HICCUPS. RESP EVEN AND UNLABORED. OXYGEN SAT HIGH 90'S TO 100% ON 2L VIA NC. 1323- OXYGEN TITRATED OFF.
--- NOTE | 2020-02-24 17:09 | PATH ---
[facility] [address], [place] [address] Signed SPECIMEN(S): A DUODENUM SPECIMEN(S): B ANTRUM SPECIMEN(S): C DISTAL ESOPHAGUS SPECIMEN(S): D MID ESOPHAGUS SPECIMEN SOURCE: A. DUODENUM B. ANTRUM C. DISTAL ESOPHAGUS D. MID ESOPHAGUS CLINICAL HISTORY: Esophagogastroduodenoscopy. Epigastric pain. Postop: Mild distal esophagitis. MICROSCOPIC DESCRIPTION: Histologic sections of all submitted blocks are examined by light microscopy. These findings, together with the gross examination, support the pathologic diagnosis. FINAL PATHOLOGIC DIAGNOSIS: A. Duodenum, biopsy: - Duodenal mucosa with no histopathologic abnormality. - Negative for increased intraepithelial lymphocytes. - Negative for intestinal metaplasia, dysplasia or malignancy. B. Stomach, antrum, biopsy: - Antral mucosa with mild focal reactive gastropathy. - Negative for Helicobacter organisms on HE stain. - Negative for dysplasia or malignancy. C. Esophagus, distal, biopsy: - Squamous mucosa with minimal reactive changes. - Negative for intestinal metaplasia, dysplasia or malignancy. D. Esophagus, mid, biopsy: - Squamous mucosa with no histopathologic abnormality. - Negative for intestinal metaplasia, dysplasia or malignancy. NAL:caw:C2NR GROSS DESCRIPTION: Four specimens are received in four containers, labeled "SM." A. The specimen, labeled "SM, 1," and designated on the requisition "duodenum," is received in formalin and consists of three collado soft tissue fragments that measure 0.3 cm in greatest dimension. The specimen is entirely submitted in cassette (A1). PATIENT NAME: KANG CANALES PATHOLOGY DATE OF : [birth year] REPORT #: [id number] PHYSICIAN: KATERINA PRINCE PCP: KYMBERLY RUELAS PAC REPORT IS CONFIDENTIAL AND NOT TO BE RELEASED WITHOUT AUTHORIZATION [facility] [address], [place] [address] Signed B. The specimen, labeled "SM, 2," and designated on the requisition "antrum," is received in formalin and consists of two collado soft tissue fragments that measure 0.2-0.4 cm in greatest dimension. The specimen is entirely submitted in cassette (B1). C. The specimen, labeled "SM, 3," and designated on the requisition "distal esophagus," is received in formalin and consists of three collado-translucent soft tissue fragments that measure 0.3-0.5 cm in greatest dimension. The specimen is entirely submitted in cassette (C1). D. The specimen, labeled "SM, 4," and designated on the requisition "mid esophagus," is received in formalin and consists of one collado-translucent soft tissue fragment that measures 0.3 cm in greatest dimension. The specimen is entirely submitted in cassette (D1). AT (under the direct supervision of a pathologist) The Gross Description was prepared using a voice recognition system. The report was reviewed for accuracy; however, sound-alike word errors, addition and/or deletions may occur. If there is any question about this report, please contact Client Services. PERFORMING LABORATORY: The technical component was performed by [facility], [address] [place] [id number] (Corn Popper: Criselda Smith MD; CLIA# [id number]). [facility], [address] [place] [address] [place] [address] (CLIA# [id number]). Diagnostician: Delisa Novak MD Pathologist Electronically Signed 02/24/2020 Copies: ~ PATIENT NAME: KANG CANALES PATHOLOGY DATE OF : [birth year] REPORT #: [id number] PHYSICIAN: KATERINA PRINCE PCP: KYMBERLY RUELAS PAC REPORT IS CONFIDENTIAL AND NOT TO BE RELEASED WITHOUT AUTHORIZATION
== END 2020-02-23 13:55 | disposition home or self-care (01) ==
LOC: OPS 11:59 → DS 12:04 → OPS 13:00 → DS 14:45
PROVIDERS: ATTEND Surgery
PROC: 0DB78ZX Excision of Stomach, Pylorus, Via Natural or Artificial Opening Endoscopic, Diagnostic (ICD-10-PCS; 2020-02-23)
PROC: 0DB28ZX Excision of Middle Esophagus, Via Natural or Artificial Opening Endoscopic, Diagnostic (ICD-10-PCS; 2020-02-23)
PROC: 0DB38ZX Excision of Lower Esophagus, Via Natural or Artificial Opening Endoscopic, Diagnostic (ICD-10-PCS; 2020-02-23)
PROC: 0DB98ZX Excision of Duodenum, Via Natural or Artificial Opening Endoscopic, Diagnostic (ICD-10-PCS; principal; 2020-02-23 13:00)
DX: K31.9 Disease of stomach and duodenum, unspecified (principal); K20.90 Esophagitis, unspecified without bleeding; Z79.899 Other long term (current) drug therapy; Z79.3 Long term (current) use of hormonal contraceptives
CPT/HCPCS: 84703; G0500; J2250; J3010; J7121

== ENCOUNTER 2020-02-29 23:19 | Emergency (ER) | payer BC ==
[~2020-02-29] VITALS: Ht 162.6 cm; Wt 80.7 kg
[2020-02-29] MEDS ORDERED: OMEPRAZOLE20 MG PO (23:42)
== END 2020-03-01 01:19 | disposition home or self-care (01) ==
LOC: ED 23:19
DX: K80.20 Calculus of gallbladder without cholecystitis without obstruction (principal); Z79.899 Other long term (current) drug therapy
CPT/HCPCS: 76705; 80053; 81001; 83690; 84703; 85025; 99284-25

== ENCOUNTER 2020-03-04 10:16 | Day surgery (SDC) | payer BC ==
[~2020-03-04] VITALS: Ht 162.6 cm; Wt 77.3 kg
--- NOTE | 2020-03-04 11:33 | NUR ---
03/04/20 1133 Yanira Mccracken 1124- PT ARRIVES TO PACU AROUSABLE TO VOICE. DOES NOT ANSWER QUESTIONS YET. PT EDUCATED THAT HER SURGERY IS OVER AND SHE FALLS BACK TO SLEEP. RESP EVEN AND UNLABORED. OXYGEN SAT HIGH 90'S TO 100% ON 6L VIA MASK. 1128- PT PULLING AT OXYGEN MASK. OXYGEN REMOVED AT THIS TIME. 1131- PT PROVIDED WITH A WARM BLANKET PER HER REQUEST.
[2020-03-04] MEDS ORDERED: OXYCODON-ACETA1 EAC2 PO (11:55)
[2020-03-04] MEDS ORDERED: ACETAMINOPHEN500 MG PO (11:56)
--- NOTE | 2020-03-04 13:25 | NUR ---
STEADY ON FEET WITH ONE PERSON STAND BY ASSIST FOR AMBULATION TO BR. PT REPORTS INCREASING PAIN WITH AMBULATION. PAIN NOW 6/10. DENIES NAUSEA. HOLDING ON MORE MEDICATION AT THIS POINT. PT VOIDED 150ML CLEAR YELLOW URINE AND RETURNED TO DS ROOM 3. SHE REPORTS CONTINUED PAIN BUT REQUESTS TO DRESS. PT DRESSING SITTING DOWN WITH HER BOYFRIEND HELPING. DISCHARGE INSTRUCTIONS ARE REVIEWED AND RX GIVEN TO PT. AFTER THIS, SHE STILL RATES PAIN 6-7/10. MD NOTIFIED. NO NEW ORDERS BUT HE DOES WANT TO HOLD THE PT UNTIL HE CAN EXAMINE HER AFTER HIS NEXT SCHEDULED SURGERY.
--- NOTE | 2020-03-04 14:21 | NUR ---
NOW REPORTS 8/10 ABD PAIN. PT AMBULATED IN THE [place] WITH NO CHANGE IN PAIN SYMPTOMS.
--- NOTE | 2020-03-04 14:49 | NUR ---
MD AT BEDSIDE EXAMINING PATIENT. ORDERS FOR ICE TO INCISONS AND A HEATING PAD STARTING TOMORROW RECIEVED. ICE PACK PROVIDED. PT DISCHARGED PER MD ORDER
--- NOTE | 2020-03-07 12:00 | OR ---
[facility] [address] [place], [place] [address] Signed DATE OF OPERATION: 03/04/2020 SURGEON: Phil Price MD PREOPERATIVE DIAGNOSIS: Subacute calculous cholecystitis. POSTOPERATIVE DIAGNOSIS: Subacute calculous cholecystitis. PROCEDURE: 1. Laparoscopic cholecystectomy with intraoperative cholangiogram. 2. Surgeon-directed fluoroscopy. ANESTHESIA: General endotracheal, Erwin Ying CRNA and local 20 mL of 0.25% Marcaine with epinephrine. INDICATION: This 19-year-old white woman is a patient of Farhan Coon and has had upper abdominal pain. My evaluation of her including upper endoscopy, which was essentially normal. She presented to the emergency room a few nights later, was found to have severe epigastric pain and presented to the emergency room, where she was evaluated by Dr. Kang. This includes a gallbladder ultrasound, which showed at least one large stone and some sludge in the gallbladder. She was seen the following day by me and she is feeling better and her symptoms, though she still has some epigastric pain. She is admitted at this time to undergo cholecystectomy preferred by laparoscopic approach. She understands the risks of bleeding, infection, bile duct injury, need for open procedure, and other unforeseen complications. She understand that she wished to proceed. FINDINGS: The gallbladder was chronically and subacutely inflamed. There were adhesions of omentum to the undersurface of the liver was normal. The gallbladder once excised showed a single 2 cm stone completely wedged in the infundibulum and within the gallbladder. No bile, only white mucoid material. There was no sign of neoplasm. Cholangiogram was entirely normal. DESCRIPTION OF PROCEDURE: The patient was brought to the operating room, given a general endotracheal anesthetic. Electronically Signed By: PHIL PRICE MD 03/07/20 [facility] PATIENT NAME: KANG CANALES OPERATIVE REPORT DATE OF : [birth year] REPORT #: [id number] PHYSICIAN: PHIL PRICE MD PCP: KYMBERLY RUELAS PAC REPORT IS CONFIDENTIAL AND NOT TO BE RELEASED WITHOUT AUTHORIZATION [facility] [address] [place], [place] [address] Signed Preoperative antibiotic Ancef was given. Sequential compression device stockings were used and heparin subcutaneously administered. The abdomen was prepared with chlorhexidine solution and draped sterilely. An infraumbilical incision was made and using an open Erasto cannula technique, pneumoperitoneum was achieved to a level of 14 mmHg of carbon dioxide gas. Intraabdominal inspection showed no sign of ascites or carcinomatosis. The liver appeared normal. The gallbladder was obscured from view. Three additional trocars were placed in usual configuration in the subxiphoid, right midclavicular, and right anterior axillary line. The gallbladder was elevated cephalad and found to have dense omental adhesions to its undersurface indicating recurrent inflammation. These omental adhesions were taken down with blunt electrocautery dissection ultimately allowing the gallbladder to be elevated more cephalad. Filmy adhesions were noted to the infundibulum. These were taken down more fully with blunt dissection ultimately identifying well the cystic duct. Using blunt and electrocautery dissection, the triangle of Calot was dissected free, identifying well the cystic arterial branch, which was doubly clipped and divided. A clip was applied across the gallbladder and cystic duct junction and a transverse choledochotomy made in the cystic duct. The cystic duct was rather thickened. Ultimately, the mucosa was encountered and clear yellow bile was noted from it. Using an Stahl type cholangiocatheter, intraoperative cholangiography was undertaken showing free flow of contrast in the biliary tree with prompt emptying into the duodenum. The biliary tree was quite narrow in size. The catheter was removed. The cystic duct was triply clipped and divided, and the gallbladder dissected free in a retrograde fashion using electrocautery. The gallbladder was extracted through the infraumbilical port site, opened on the back table and found to have a densely wedged stone in the infundibulum with essentially no outlet of the gallbladder and clear and mucoid bile. No evidence of actual bile only "white bile." Irrigation was undertaken in subhepatic space. There was no sign of bile leak, bleeding, or other problems. The trocars removed under direct visualization showing no sign of bleeding. The infraumbilical fascial incision reapproximated with interrupted 0 Vicryl suture. Irrigation was undertaken and 20 mL of 0.25% Marcaine was injected locally. The skin was then closed with interrupted 3-0 Vicryl and Steri-Strips were applied. The patient was ultimately extubated and transferred to the recovery room in good condition, having suffered no complications. Sponge, needle, and instrument counts were reported as correct x3. Phil Price MD /MODL /[id number] Electronically Signed By: PHIL PRICE MD 03/07/20 [facility] PATIENT NAME: KANG CANALES OPERATIVE REPORT DATE OF : [birth year] REPORT #: [id number] PHYSICIAN: PHIL PRICE MD PCP: KYMBERLY RUELAS PAC REPORT IS CONFIDENTIAL AND NOT TO BE RELEASED WITHOUT AUTHORIZATION [facility] [address] [place] [address] Signed cc: Farahn Coon MD Copies: ~ Electronically Signed By: PHIL PRICE MD 03/07/20 1200 PATIENT NAME: KANG CANALES OPERATIVE REPORT DATE OF : [birth year] REPORT #: [id number] PHYSICIAN: PHIL PRICE MD PCP: KYMBERLY RUELAS PAC REPORT IS CONFIDENTIAL AND NOT TO BE RELEASED WITHOUT AUTHORIZATION
--- NOTE | 2020-03-08 11:29 | PATH ---
[facility] [address] [place], [place] [address] Signed SPECIMEN(S): A GALLBLADDER SPECIMEN SOURCE: A. GALLBLADDER CLINICAL HISTORY: Cholecystitis, calculus of gallbladder FINAL PATHOLOGIC DIAGNOSIS: Gallbladder, cholecystectomy: - Chronic cholecystitis with cholesterolosis. - Cholelithiasis. NAL:cml:C2NR MICROSCOPIC EXAMINATION: Histologic sections of all submitted blocks are examined by light microscopy. These findings, together with the gross examination, support the pathologic diagnosis. GROSS DESCRIPTION: The specimen, labeled "SM," and designated on the requisition "gallbladder," is received in formalin and consists of Specimen: Previously incised gallbladder. Dimensions: Upon reconstruction, 5.7 x 2.8 x 1.8 cm. Serosa: Russell-white, smooth, glistening.. Cystic Duct: 0.1 cm in diameter, patent, and the margin is inked blue. Calculi: The gallbladder contains one oval, 2.0 cm in greatest dimension, russell-yellow, granular, hard calculus.. Mucosa: Russell, velvety, glistening with loosely adherent green to russell-white sledge material and multiple areas of russell stippling. Wall thickness: Uniform and 0.2 cm. Lymph node: No pericystic lymph nodes are grossly identified. Additional: None. Parking Lot Chauffeur sections are submitted in cassette (A1). AI (under the direct supervision of a pathologist) The Gross Description was prepared using a voice recognition system. The report was reviewed for accuracy; however, sound-alike word errors, addition and/or deletions may occur. If there is any question about this report, please contact Client Services. PATIENT NAME: KANG CANALES PATHOLOGY DATE OF : [birth year] REPORT #: [id number] PHYSICIAN: KATERINA PRINCE PCP: KYMBERLY RUELAS PAC REPORT IS CONFIDENTIAL AND NOT TO BE RELEASED WITHOUT AUTHORIZATION [facility] [address] [place] [address] Signed PERFORMING LABORATORY: The technical component was performed by [place] [address] (Wildlife Enforcement Major: Criselda Smith MD; CLIA# [id number]). Professional interpretation was performed by [facility] [address] [address] (CLIA# [id number]). Diagnostician: Delisa Novak MD Pathologist Electronically Signed 03/08/2020 Copies: ~ PATIENT NAME: KANG CANALES PATHOLOGY DATE OF : [birth year] REPORT #: [id number] PHYSICIAN: KATERINA PRINCE PCP: KYMBERLY RUELAS PAC REPORT IS CONFIDENTIAL AND NOT TO BE RELEASED WITHOUT AUTHORIZATION
== END 2020-03-04 14:50 | disposition home or self-care (01) ==
LOC: DS 10:16
PROVIDERS: ATTEND Surgery
PROC: 0FT44ZZ Resection of Gallbladder, Percutaneous Endoscopic Approach (ICD-10-PCS; principal; 2020-03-04 08:30)
PROC: BF13YZZ Fluoroscopy of Gallbladder and Bile Ducts using Other Contrast (ICD-10-PCS; principal; 2020-03-04 08:30)
DX: K80.66 Calculus of gallbladder and bile duct with acute and chronic cholecystitis without obstruction (principal); J45.909 Unspecified asthma, uncomplicated; Z79.899 Other long term (current) drug therapy; Z79.3 Long term (current) use of hormonal contraceptives
CPT/HCPCS: 00790; 74300; A9270; J0131; J0330; J0690; J1100; J1644; J1885; J2001; J2405; J2704; J3010; J7121; Q9967

== ENCOUNTER 2020-07-16 22:50 | Emergency (ER) | payer BC ==
[~2020-07-16] VITALS: Ht 162.6 cm; Wt 77.1 kg
[~2020-07-16 22:50] MED LIST changes: +ACETAMINOPHEN500 MG PO; +OXYCODON-ACETA1 EAC2 PO
[2020-07-17] MEDS ORDERED: PERCOCET 5-3251 EACH PO (00:18)
[2020-07-17] MEDS ORDERED: FLOMAX0.4 MG PO (11:58)
[2020-07-17] MEDS ORDERED: HYDROCODON-ACE1 EA10 PO (11:58)
[2020-07-17] MEDS ORDERED: ONDANSETRON ODT4 MG PO (11:58)
== END 2020-07-17 00:35 | disposition home or self-care (01) ==
LOC: ED 22:50
DX: N20.1 Calculus of ureter (principal); Z79.899 Other long term (current) drug therapy
CPT/HCPCS: 74176; 81001; 84703; 99284-25

== ENCOUNTER 2022-02-12 17:43 | Emergency (ER) | payer BC ==
[~2022-02-12] VITALS: Ht 162.6 cm; Wt 77.1 kg
[~2022-02-12 17:43] MED LIST changes: +FLOMAX0.4 MG PO; +HYDROCODON-ACE1 EA10 PO; +ONDANSETRON ODT4 MG PO; +PERCOCET 5-3251 EACH PO
--- NOTE | 2022-02-12 20:08 | EKG ---
[facility] [address] [facility] [place] [address] Signed Sinus tachycardia Nonspecific T wave abnormality Abnormal ECG No previous ECGs available Confirmed by RAQUEL GR MD ([id number]) on 02/12/2022 8:07:50 PM Electronically Signed By: RAQUEL GR MD 02/12/222007 PATIENT NAME: KANG CANALES Electrocardiogram DATE OF : [birth year] PHYSICIAN: RAQUEL GR MD REPORT #: [id number] REPORT IS CONFIDENTIAL AND NOT TO BE RELEASED WITHOUT AUTHORIZATION
[2022-02-12] MEDS ORDERED: BACTRIM DS TAB1 EACH PO (23:23)
== END 2022-02-13 00:36 | disposition home or self-care (01) ==
LOC: ED 17:43
DX: N39.0 Urinary tract infection, site not specified (principal); R00.0 Tachycardia, unspecified; J45.909 Unspecified asthma, uncomplicated; Z87.442 Personal history of urinary calculi; Z79.899 Other long term (current) drug therapy; Z20.822 Contact with and (suspected) exposure to COVID-19
CPT/HCPCS: 36415; 71045; 74176; 80053; 81001; 83605; 84443; 84703; 85025; 87502; 93005; 93010; 96365; 99285-25; A9270; C9803; J0696; J7030; J7121; U0003